=== PATIENT | female | born 1965 | race Caucasian/White ===

== ENCOUNTER 2017-01-03 21:07 | Emergency (ER) | payer OTHER ==
[2017-01-03 21:14] VITALS: BP 128/80; PULSE 119; TEMP 98.6; BMI 28.1
[2017-01-03] MEDS ORDERED: guaiFENesin/D-METHORPHAN HB 10 ML UNIT-DOSE CUPS PO ONE ×2 (21:40→22:39)
[2017-01-03] MEDS ORDERED: ALBUTEROL SO4 2.5/IPRATROPIUM 0.5 INH SOL 3 ML VIAL.NEB. NEB ONE ×2 (21:41)
[2017-01-03] MEDS ORDERED: guaiFENesin/D-METHORPHAN HB 10 ML UNIT-DOSE CUPS ONE ×2 (21:41→22:48)
[2017-01-03] MEDS ORDERED: predniSONE 20 MG TABLET (UD) ONE (21:41)
[2017-01-03] MEDS ORDERED: LIDOCAINE VISCOUS 2% ORAL/TOP 20 ML UNIT-DOSE CUP MM ONE (21:41)
[2017-01-03] MEDS ORDERED: predniSONE 20 MG TABLET (UD) PO ONE (21:43)
--- NOTE | 2017-01-03 21:50 | PDOC ---
History of Present Illness - General History Source: Patient Exam Limitations: No Limitations - History of Present Illness Initial Comments: 01/03/17 22:05 The patient is a 51 year old female with past medical history of asthma who presents to the ED with complaints of asthma exacerbation for one week. The patient states that she initially had a cold in which she saw her PCP for and was treated with metamucil. Her cold symptoms have subsided but her asthma still persists. She complains of cough and shortness of breath when she talks. The patient reports taking two nebulizer treatments today which did not help. She denies any fever, chills, nausea, vomiting, diarrhea, chest pain, or urinary symptoms. <JoanneeddiYadira - Last Filed: 01/03/17 22:05> - General History Source: Patient <Jose ManuelAlvin Enrique - Last Filed: 01/04/17 00:23> - General Chief Complaint: Respiratory Stated Complaint: ASTHMA ATTACK Past History <JoanneeddiYadira - Last Filed: 01/03/17 22:05> - Past Medical History Asthma: Yes - Surgical History GI Surgery: Yes (prolapsed bladder) - Psycho/Social/Smoking Cessation Hx Suicidal Ideation: No Smoking History: Never smoked <BirminghamAlvin Enrique - Last Filed: 01/04/17 00:23> - Past Medical History Allergies/Adverse Reactions: Allergies Allergy/AdvReac Type Severity Reaction Status Date / Time No Known Allergies Allergy Verified 01/03/17 21:14 Home Medications: Ambulatory Orders Albuterol Sulfate Inhaler - [Ventolin HFA Inhaler -] 2 inh PO Q4H #1 inh Benzonatate [Tessalon Pearls -] 100 mg PO TID #21 capsule 01/03/17 Guaifenesin Dm [Robitussin Dm] 10 ml PO Q4H #1 bottle 01/03/17 Prednisone [Deltasone -] 60 mg PO DAILY #4 tablet 01/03/17 Review of Systems - Review of Systems Able to Perform ROS?: Yes Comments:: 01/03/17 22:05 GENERAL/CONSTITUTIONAL: No fever or chills. No weakness. HEAD, EYES, EARS, NOSE AND THROAT: No change in vision. No ear pain or discharge. No sore throat. CARDIOVASCULAR: No chest pain. RESPIRATORY: Present: cough, shortness of breath No wheezing, or hemoptysis. GASTROINTESTINAL: No nausea, vomiting, diarrhea or constipation. GENITOURINARY: No dysuria, frequency, or change in urination. MUSCULOSKELETAL: No joint or muscle swelling or pain. No neck or back pain. SKIN: No rash NEUROLOGIC: No headache, vertigo, loss of consciousness, or change in strength/ sensation. ENDOCRINE: No increased thirst. No abnormal weight change. HEMATOLOGIC/LYMPHATIC: No anemia, easy bleeding, or history of blood clots. ALLERGIC/IMMUNOLOGIC: No hives or skin allergy. All Other Systems: Reviewed and Negative <Yadira Ruano - Last Filed: 01/03/17 22:05> *Physical Exam - Vital Signs Last Vital Signs Temp Pulse Resp BP Pulse Ox 98.6 F 119 H 20 128/80 98 01/03/17 21:11 01/03/17 21:11 01/03/17 21:11 01/03/17 21:11 01/03/17 21:25 - Physical Exam Comments: 01/03/17 22:06 GENERAL: Awake, alert, and fully oriented, in no acute distress HEAD: No signs of trauma EYES: PERRLA, EOMI, sclera anicteric, conjunctiva clear ENT: Auricles normal inspection, hearing grossly normal, nares patent, oropharynx clear without exudates. Moist mucosa NECK: Normal ROM, supple, no lymphadenopathy, JVD, or masses LUNGS: Mild prolonged expiratory wheeze. Dry cough appreciated. Breath sounds equal, clear to auscultation bilaterally. No crackles HEART: Mildly tachycardic, normal S1 and S2, no murmurs, rubs or gallops ABDOMEN: Soft, nontender, normoactive bowel sounds. No guarding, no rebound. No masses EXTREMITIES: Normal range of motion, no edema. No clubbing or cyanosis. No cords , erythema, or tenderness NEUROLOGICAL: Cranial nerves II through XII grossly intact. Normal speech, normal gait SKIN: Warm, Dry, normal turgor, no rashes or lesions noted. <Yadira Ruano - Last Filed: 01/03/17 22:05> - Vital Signs Last Vital Signs Temp Pulse Resp BP Pulse Ox 98.6 F 119 H 20 128/80 98 01/03/17 21:11 01/03/17 21:11 01/03/17 21:11 01/03/17 21:11 01/03/17 21:25 <Alvin Richard - Last Filed: 01/04/17 00:23> ED Treatment Course - LABORATORY CBC & Chemistry Diagram: 01/03/17 21:38 01/03/17 21:38 - ADDITIONAL ORDERS Additional order review: Laboratory Results 01/03/17 21:38 Urine Color Straw Urine Appearance Clear Urine pH 5.0 Ur Specific [place] 1.013 Urine Protein Negative Urine Glucose (UA) Negative Urine Ketones Negative Urine Blood 2+ H Urine Nitrite Negative Urine Bilirubin Negative Urine Urobilinogen Negative Ur Leukocyte Esterase Negative Urine RBC 1 Urine WBC 1 Ur Epithelial Cells Rare Urine Mucus Rare 01/03/17 21:38 RBC 4.27 MCV 84.0 MCHC 33.6 RDW 13.6 MPV 7.7 Neutrophils % 47.5 Lymphocytes % 40.0 Monocytes % 10.1 Eosinophils % 1.9 Basophils % 0.5 - Medications Given in the ED: ED Medications Discontinued Medications Generic Name Dose Route Start Last Admin Trade Name Juiceq PRN Reason Stop Dose Admin Albuterol/Ipratropium 1 amp 01/03/17 21:41 01/03/17 21:48 Duoneb - NEB 01/03/17 21:42 1 amp ONCE ONE Administration Guaifenesin 10 ml 01/03/17 21:40 01/03/17 21:48 Robitussin Dm - PO 01/03/17 21:41 10 ml ONCE ONE Administration Lidocaine HCl 10 ml 01/03/17 21:41 01/03/17 21:48 Xylocaine 2% Viscous Oral - MM 01/03/17 21:42 10 ml ONCE ONE Administration Prednisone 60 mg 01/03/17 21:43 01/03/17 21:48 Deltasone - PO 01/03/17 21:44 60 mg ONCE ONE Administration <Yadira Ruano - Last Filed: 01/03/17 22:05> - LABORATORY CBC & Chemistry Diagram: 01/03/17 21:38 01/03/17 21:38 <Alvin Richard - Last Filed: 01/04/17 00:23> Medical Decision Making - Medical Decision Making 01/03/17 23:42 This is a 51yo F with cough variant asthma exacerbation, and no objective findings, particularly a negative CXR. She has no leukocytosis and no fever; she looks well only with cough paroxysms. She is doing better with the nebulized albuterol, ipratropirum and lidocaine. She is given tessalon pearles , robitussin DM and prednisone, albuterol MDI. She is encouraged to follow up with the PMD within the next 48 hours and if there is any change otherwise in symptoms, to return immediately to the ED. 01/04/17 00:22 Pt is feeling much improved. She is discharged with the above plan. <Alvin Richard - Last Filed: 01/04/17 00:23> *DC/Admit/Observation/Transfer - Attestations Scribe Attestion: 01/03/17 22:08 Documentation prepared by Yadira Ruano, acting as medical clerical assistant for Alvin Richard MD. <Yadira Ruano - Last Filed: 01/03/17 22:05> - Discharge Dispostion Admit: No Decision to Admit order Date/Time: 01/03/17 23:39 - Attestations Physician Attestion: 01/04/17 00:22 I, Dr. Alvin Richard MD, attest that this document has been prepared under my direction and personally reviewed by me in its entirety. I further attest, that it accurately reflects all work, treatment, procedures and medical decision -making performed by me. <Alvin Richard - Last Filed: 01/04/17 00:23> Diagnosis at time of Disposition: Cough variant asthma, Chest tightness - Discharge Dispostion Disposition: HOME Condition at time of disposition: Good - Prescriptions Prescriptions: Prednisone [Deltasone -] 60 mg PO DAILY #4 tablet Guaifenesin Dm [Robitussin Dm] 10 ml PO Q4H #1 bottle Benzonatate [Tessalon Pearls -] 100 mg PO TID #21 capsule Albuterol Sulfate Inhaler - [Ventolin HFA Inhaler -] 2 inh PO Q4H #1 inh - Patient Instructions Additional Instructions: Please follow up with your PMD within the next 48 hours and if there is any change otherwise in your symptoms, please return immediately to the ED. At this time, your symptoms are likely related to viral issue and antibiotics are unlikely to be helpful.
[2017-01-03 21:53] LABS: URINE APPEARANCE CLEAR; URINE BILIRUBIN NEGATIVE (NEGATIVE); URINE COLOR STRAW; URINE GLUCOSE (UA) NEGATIVE (NEGATIVE); URINE KETONE NEGATIVE (NEGATIVE); URINE LEUK ESTERASE NEGATIVE (NEGATIVE); URINE NITRITE NEGATIVE (NEGATIVE); URINE PROTEIN NEGATIVE (NEGATIVE); URINE UROBILINOGEN NEGATIVE E.U./dl (0.2-1.0)
[2017-01-03 21:54] LABS: BASOPHIL 0.5 % (0-2.0); EOSINOPHIL 1.9 % (0-4.5); MCH 28.2 pg (25.7-33.7); MCHC 33.6 g/dl (32.0-36.0); MEAN PLT VOLUME 7.7 fl (7.5-11.1); NEUTROPHILS 47.5 % (42.8-82.8); PLATELET COUNT 224 K/MM3 (134-434); RDW 13.6 % (11.6-15.6); WHITE BLOOD COUNT 5.1 K/mm3 (4.0-10.0)
[2017-01-03] MEDS ORDERED: SODIUM CHLORIDE 1,000 ML IV ONE (21:54)
[2017-01-03 21:56] LABS: URINE BLOOD 2+ (NEGATIVE)
[2017-01-03 21:59] LABS: URINE MUCUS RARE; URINE RBC 1 /hpf (0-3); URINE WBC 1 /hpf (3-5)
[2017-01-03 22:04] LABS: INR 1.21 (0.82-1.09); PROTHROMBIN TIME (PATIENT) 13.4 SEC (9.98-11.88)
[2017-01-03 22:17] LABS: ALBUMIN 3.3 g/dl (3.4-5.0); BILIRUBIN,TOTAL 0.3 mg/dL (0.2-1.0); CALCIUM 7.8 mg/dL (8.5-10.1); MAGNESIUM 2.1 mg/dL (1.8-2.4); PHOSPHOROUS 2.2 mg/dL (2.5-4.9); TOT PROT 7.1 g/dl (6.4-8.2)
[2017-01-03] MEDS ORDERED: ONDANSETRON *ODT* 4 MG TABLET SL ONE (22:40)
[2017-01-03] MEDS ORDERED: ONDANSETRON *ODT* 4 MG TABLET ONE (22:48)
[2017-01-03] MEDS ORDERED: LIDOCAINE HCL 2% (20ML MULTI-DOSE VIAL) NR ONE (22:54)
[2017-01-03] MEDS ORDERED: POTASSIUM CHLORIDE TABS 20 MEQ TABLET.ER (FP) PO ONE ×2 (23:06→23:07)
[2017-01-03] MEDS ORDERED: LIDOCAINE HCL 2% (50ML VIAL) INF ONE (23:37)
[2017-01-03] MEDS ORDERED: guaiFENesin/CODEINE 10 ML UNIT-DOSE CUPS PO ONE (23:37)
[2017-01-04] MEDS ORDERED: LIDOCAINE HCL 2% (20ML MULTI-DOSE VIAL) NR ONE (00:50)
[2017-01-04] MEDS ORDERED: guaiFENesin/CODEINE 5 ML UNIT-DOSE CUPS PO ONE (00:50)
== END 2017-01-04 01:05 | disposition home or self-care (01) ==
LOC: JER 21:07
PROC: 3E0F7GC Introduction of Other Therapeutic Substance into Respiratory Tract, Via Natural or Artificial Opening (ICD-10-PCS; principal; 2017-01-03)
PROC: 3E0337Z Introduction of Electrolytic and Water Balance Substance into Peripheral Vein, Percutaneous Approach (ICD-10-PCS; 2017-01-03)
DX: J45.991 Cough variant asthma (principal)
CPT/HCPCS: 36415; 71020-TC; 80053; 81003; 81015; 83605; 83735; 83880; 84100; 85025; 85610; 86850; 86900; 86901; 99284-25

== ENCOUNTER 2019-07-11 04:52 | Inpatient (IN) | payer OTHER ==
--- NOTE | 2019-07-11 05:04 | PDOC ---
Attending Attestation - Resident Resident Name: Charlie Lima - ED Attending Attestation I have performed the following: I have examined & evaluated the patient, The case was reviewed & discussed with the resident, I agree w/resident's findings & plan - HPI HPI: 07/11/19 05:20 Pt comes with fever and chills and hypotension and dehydration and weakness and body aches all over. She has been unable to eat x 2 days. Feeling unwell. - Physicial Exam PE: 07/11/19 05:20 Febrile, tachy, dehydrated, hypotensive. HEENT normal Lungs clear, heart tachy Abd soft NT ND No flank pain ni sprapubic pain. No swelling or edema of legs or arms. - Medical Decision Making 07/11/19 05:43 CXR normal; EKG NSR; exam normal, except for fever and tahcycardia and diffuse body aches 07/11/19 06:57 Pt will be admitted for fever, aches, inability to eat and drink and weakness. Signed out to the day team; will be admitted to hospitalist. Heart Score/ECG Review - ECG Intrepretation Rhythm: Regular Rhythm - [place]: Normal - P and OR Prominent R with upright T in V1 (true posterior CT): No Delta Wave(s) Present: No WPW: No - QRS Poor R Wave Progression: No Q Wave Present: No - ST and T Early Repolarization: No Non Specific ST-T Wave changes: No Flattened T Waves: No Prolonged Q-T Interval: No - ECG Impressions Normal ECG: Yes Non-specific ST Elevation: No Ischemic Changes: No Bradycardia: No Torsades janessa Pointes: No WPW: No
[2019-07-11] MEDS ORDERED: LACTATED RINGERS SOLUTION 1000 ML INFUS.BAG IV ONE ×2 (05:12→07:16)
[2019-07-11] MEDS ORDERED: ONDANSETRON 4 MG/2 ML VIAL IVPB ONE (05:13)
[2019-07-11] MEDS ORDERED: IBUPROFEN 800 MG/8 ML IJ IVPB ONE ×3 (05:13→07:48)
[2019-07-11] MEDS ORDERED: ACETAMINOPHEN INJECTION 100 ML IVPB ONE (05:16)
[2019-07-11] MEDS ORDERED: ACETAMINOPHEN 1000 MG/100 ML VIAL (NON FORMULARY) IVPB ONE (05:18)
[2019-07-11 05:30] LABS: VENOUS PC02 42.1 mmHg (38-52); VENOUS PH 7.41 (7.31-7.41)
[2019-07-11 05:32] LABS: BASO % 0.8 % (0-2.0); EOS % 0.2 % (0-4.5); HEMATOCRIT 37.8 % (32.4-45.2); HEMOGLOBIN 12.9 GM/dL (10.7-15.3); LYMPH % 23.9 % (8-40); MCH 29.1 pg (25.7-33.7); MCHC 34.2 g/dl (32.0-36.0); MEAN CELL VOLUME 85.1 fl (80-96); MEAN PLT VOLUME 7.4 fl (7.5-11.1); NEUT % 63.1 % (42.8-82.8); PLATELET COUNT 206 K/MM3 (134-434); RBC 4.44 M/mm3 (3.60-5.2); RDW 13.5 % (11.6-15.6); VENOUS PO2 < 49 mmHg (28-48); WHITE BLOOD COUNT 4.8 K/mm3 (4.0-10.0)
--- NOTE | 2019-07-11 05:39 | PDOC ---
History of Present Illness - General Chief Complaint: SIRS, Suspected/Possible Stated Complaint: DEHYDRATED/PAIN Time Seen by Provider: 07/11/19 05:01 History Source: Patient Exam Limitations: No Limitations - History of Present Illness Initial Comments: HPI: 53 y/o female presenting to [facility] ER complaining of persistent vomiting with fevers and chills since Thursday. Unable to tolerate PO. Emesis described as yellow without blood or bile. Denies associated abdominal pain, diarrhea, or urinary symptoms. Endorses diffuse body aches and "mild" constipation. Attempted relief with PO Tylenol without success. No known sick contacts. Medical Hx: - Asthma, managed with PRN albuterol Surgical Hx: - Uterine lift - Review of Systems: In addition to that documented in the HPI above, the additional ROS was obtained : Constitutional- Endorses fevers and chills Head- Denies vision changes ENMT- Denies sore throat CV- Denies chest pain Resp- Denies SOB, cough, or sneeze GI- Per HPI - Denies painful urination, hematuria, or increased urinary frequency MSK- Denies recent trauma Skin- Denies new rashes Neuro- Denies new numbness or tingling or weakness Endocrine- Denies polyuria Heme- Denies bleeding or bruising Physical Examination: Constitutional- Puny appearing adult female in no acute distress but obvious mild discomfort. Found semi-fowlers on hospital bed. Answered all questions appropriately and completely. Speech was non-labored, non-pressured. Head- Normocephalic. No obvious external signs of trauma. Eyes- Sclerae white. Ears- External auditory canals and tympanic membranes pearly holly. Hearing grossly intact. Nose- No nasal discharge. Throat- Oral cavity and pharynx normal. No inflammation, swelling, exudate, or lesions. Neck- Supple, trachea is midline. Cardiovascular / Chest- Tachycardic rate with regular rhythm. No murmur, rubs, clicks, or gallops. Peripheral pulses- radial pulses full. Respiratory- Breathing unlabored. Equal chest rise and fall. Clear to auscultation bilaterally. No stridor, no wheezing, no rhonchi. Gastrointestinal- abdomen is soft, non-tender, non-distended. No overlying skin lesions or obvious signs of trauma. Neuro- Alert and oriented x4. Moving all four extremities spontaneously. Skin- Feverish but dry. No bruising, rashes, or other lesions. - No R or L CVA tenderness. Psych- Affect- appropriate. Mood- normal. MDM: *Reviewed vital signs, nursing notes, and prior visit documentation (if available). 53 y/o female presenting with vomiting, fever, and diffuse body aches for three days. Febrile at triage; given acetaminophen. Vitals remarkable for tachycardia without hypotension. Physical exam as described above. Suspect likely acute viral syndrome with dehydration. Initial UA grossly contaminated. Repeat UA obtained after clean catch coaching remarkable for trace leukocyte esterase and pyuria. Low suspicion for UTI as pt denies urinary complaints, however will treat pt with Ceftriaxone. Urine culture pending. Given 2L LR IVFB and Zofran. Pt reassessed. Remains febrile to the touch. Will admit to hospital for further rehydration as pt remains unable to tolerate PO. Lives alone. Ordered third LR IVFB and Motrin. 11 Jul 2019 05:50 [facility]. Awaiting call back. 11 Jul 2019 06:20 In person discussion with resident Dr. Wilde. Verbally appraised of the pts HPI, ED course, and current plan of management. Will admit pt to med/surg for attending Dr. Gallardo. Charlie Lima M.D., PGY2 Emergency Medicine Resident Past History - Past Medical History Allergies/Adverse Reactions: Allergies Allergy/AdvReac Type Severity Reaction Status Date / Time No Known Allergies Allergy Verified 07/11/19 05:03 Home Medications: Ambulatory Orders Albuterol Sulfate Inhaler - [Ventolin HFA Inhaler -] 2 inh PO Q4H #1 inh Benzonatate [Tessalon Pearls -] 100 mg PO TID #21 capsule 01/03/17 Guaifenesin Dm [Robitussin Dm] 10 ml PO Q4H #1 bottle 01/03/17 predniSONE [Deltasone -] 60 mg PO DAILY #4 tablet 01/03/17 Asthma: Yes COPD: No - Surgical History GI Surgery: Yes (prolapsed bladder) - Psycho Social/Smoking Cessation Hx Smoking History: Never smoked *Physical Exam - Vital Signs Last Vital Signs Temp Pulse Resp BP Pulse Ox 101.8 F H 126 H 20 109/75 97 07/11/19 05:02 07/11/19 05:02 07/11/19 05:02 07/11/19 05:15 07/11/19 05:02 ED Treatment Course - LABORATORY CBC & Chemistry Diagram: 07/11/19 05:17 07/11/19 05:12 - ADDITIONAL ORDERS Additional order review: Laboratory Results 07/11/19 05:17 VBG pH 7.41 POC VBG pCO2 42.1 POC VBG pO2 < 49 H VBG HCO3 26.0 VBG O2 Sat (Juliane) 63.1 L VBG Base Excess 1.6 - RADIOLOGY Radiology Studies Ordered: Category Date Time Status CHEST X-RAY PORTABLE* [RAD] Stat Radiology 07/11/19 05:12 Ordered - Medications Given in the ED: ED Medications Discontinued Medications Generic Name Dose Route Start Last Admin Trade Name Christin PRN Reason Stop Dose Admin Acetaminophen 1,000 mg 07/11/19 05:18 07/11/19 05:19 Ofirmev Injection - IVPB 07/11/19 05:19 1,000 mg ONCE ONE Administration Ibuprofen 800 mg 07/11/19 05:13 07/11/19 05:23 Caldolor Injection - IVPB 07/11/19 05:14 Not Given ONCE ONE Lactated Ringer's 2,000 ml 07/11/19 05:12 07/11/19 05:22 Lactated Ringers Solution IV 07/11/19 05:13 2,000 ml ONCE ONE Administration Discharge - Discharge Information Problems reviewed: Yes Clinical Impression/Diagnosis: Tachycardia, Generalized body aches, Vomiting alone Fever Qualifiers: Fever type: unspecified Qualified Code(s): R50.9 - Fever, unspecified Condition: Stable - Admission Yes - Follow up/Referral - Patient Discharge Instructions - Post Discharge Activity
[2019-07-11 05:49] LABS: EPI CELLS >36 /HPF (0-5/HPF); HYALINE CASTS 26 /lpf (0-8); URINE APPEARANCE TURBID; URINE BACTERIA 1236.7 /hpf (NEGATIVE); URINE BILIRUBIN NEGATIVE (NEGATIVE); URINE COLOR YELLOW; URINE GLUCOSE (UA) NEGATIVE (NEGATIVE); URINE KETONE TRACE (NEGATIVE); URINE LEUK ESTERASE 2+ (NEGATIVE); URINE NITRITE NEGATIVE (NEGATIVE); URINE PROTEIN 1+ (NEGATIVE); URINE UROBILINOGEN 0.2 mg/dL (0.2-1.0); URINE WBC 199 /hpf (0-5)
[2019-07-11] MEDS ORDERED: ONDANSETRON 4 MG/2 ML VIAL ONE (05:49)
[2019-07-11 05:51] LABS: URINE RBC 23 /hpf (0-4)
[2019-07-11 05:53] LABS: INR 1.27 (0.83-1.09)
[2019-07-11 05:57] LABS: ALBUMIN 3.7 g/dl (3.4-5.0); ALK PHOS 93 U/L (45-117); ANION GAP 7 MMOL/L (8-16); BILIRUBIN,TOTAL 0.5 mg/dL (0.2-1); CALCIUM 8.3 mg/dL (8.5-10.1); CHLORIDE 107 mmol/L (98-107); CO2 25 mmol/L (21-32); CREATININE 0.9 mg/dL (0.55-1.3); GLUCOSE,RANDOM 116 mg/dL (74-106); POTASSIUM 4.2 mmol/L (3.5-5.1); SGOT/AST 27 U/L (15-37); SGPT/ALT 28 U/L (13-61); SODIUM 139 mmol/L (136-145); TOT PROT 7.5 g/dl (6.4-8.2)
[2019-07-11] MEDS ORDERED: CEFTRIAXONE 1 GM in DEXTROSE 5%-WATER - 50 ML IVPB ONE (06:12)
[2019-07-11] MEDS ORDERED: CEFTRIAXONE 1 GM/50 ML BAG ONE (06:18)
[2019-07-11 06:37] LABS: EPI CELLS 4.7 /HPF (0-5/HPF); HYALINE CASTS 4 /lpf (0-8); PH,URINE 5.5 (5.0-8.0); URINE APPEARANCE CLEAR; URINE BACTERIA 76.7 /hpf (NEGATIVE); URINE BILIRUBIN NEGATIVE (NEGATIVE); URINE COLOR YELLOW; URINE GLUCOSE (UA) NEGATIVE (NEGATIVE); URINE KETONE NEGATIVE (NEGATIVE); URINE LEUK ESTERASE TRACE (NEGATIVE); URINE NITRITE NEGATIVE (NEGATIVE); URINE PROTEIN NEGATIVE (NEGATIVE); URINE RBC 3 /hpf (0-4); URINE UROBILINOGEN 0.2 mg/dL (0.2-1.0); URINE WBC 12 /hpf (0-5)
[2019-07-11] MEDS ORDERED: ALBUTEROL SO4 0.083% IH SOL 2.5 MG/3 ML VIAL.NEB. NEB PRN (07:42)
--- NOTE | 2019-07-11 07:42 | HP ---
CHIEF COMPLAINT: fever, chills, nausea,vomiting PCP: none HISTORY OF PRESENT ILLNESS: Patient is a 53 y/o female with a history of asthma who presents with fever, nausea, vomiting, and body aches. Patient reports her symptoms started 3 days ago. The last time she ate was three days ago for lung. Yesterday she vomited two times yellow bile. She denies any sick contacts. She has been feeling hot but has not taken her temperature. Patient is a gas station cashier. Also complains of headache. Denies chest pain, shortness of breath, muscle cramping, dysuria, hematuria, or abdominal pain. ER course was notable for: (1) Zofran (2) (3) Recent Travel: returned from [place] 3 weeks ago PAST MEDICAL HISTORY: asthma PAST SURGICAL HISTORY: 3 bladder lifts and a C section Social History: Smoking: denies Alcohol: denies Drugs: denies Allergies No Known Allergies Allergy (Verified 07/11/19 05:03) HOME MEDICATIONS: Home Medications Medication Instructions Recorded Albuterol Sulfate Inhaler - 2 inh PO Q4H #1 inh 01/03/17 [Ventolin HFA Inhaler -] Benzonatate [Tessalon Pearls -] 100 mg PO TID #21 capsule 01/03/17 Guaifenesin Dm [Robitussin Dm] 10 ml PO Q4H #1 bottle 01/03/17 predniSONE [Deltasone -] 60 mg PO DAILY #4 tablet 01/03/17 REVIEW OF SYSTEMS CONSTITUTIONAL: fever, chills, loss of appetite, Absent: diaphoresis, generalized weakness, malaise, weight change HEENT: Absent: rhinorrhea, nasal congestion, throat pain, throat swelling, difficulty swallowing, mouth swelling, ear pain, eye pain, visual changes CARDIOVASCULAR: Absent: chest pain, syncope, palpitations, irregular heart rate, lightheadedness , peripheral edema RESPIRATORY: Absent: cough, shortness of breath, dyspnea with exertion, orthopnea, wheezing, stridor, hemoptysis GASTROINTESTINAL: Absent: abdominal pain, abdominal distension, nausea, vomiting, diarrhea, constipation, melena, hematochezia GENITOURINARY: Absent: dysuria, frequency, urgency, hesitancy, hematuria, flank pain, genital pain MUSCULOSKELETAL: Absent: myalgia, arthralgia, joint swelling, back pain, neck pain SKIN: Absent: rash, itching, pallor HEMATOLOGIC/IMMUNOLOGIC: Absent: easy bleeding, easy bruising, lymphadenopathy, frequent infections ENDOCRINE: Absent: unexplained weight gain, unexplained weight loss, heat intolerance, cold intolerance NEUROLOGIC: headache, Absent: focal weakness or paresthesias, dizziness, unsteady gait, seizure, mental status changes, bladder or bowel incontinence PSYCHIATRIC: Absent: anxiety, depression, suicidal or homicidal ideation, hallucinations. PHYSICAL EXAMINATION Vital Signs - 24 hr 07/11/19 07/11/19 05:02 05:15 Temperature 101.8 F H Pulse Rate 126 H Respiratory 20 Rate Blood Pressure 94/74 Blood Pressure 109/75 [Left Arm] O2 Sat by Pulse 97 Oximetry (%) GENERAL: Awake, alert, and fully oriented, in no acute distress. HEAD: Normal with no signs of trauma. EYES: Pupils equal, round and reactive to light, extraocular movements intact, EARS, NOSE, THROAT: Moist mucous membranes. No erythema of pharynx LUNGS: Breath sounds equal, clear to auscultation bilaterally. No wheezes, and no crackles. No accessory muscle use. HEART: Regular rate and rhythm, normal S1 and S2 without murmur, rub or gallop. ABDOMEN: Soft, nontender, not distended, normoactive bowel sounds, no guarding, no rebound, no masses. MUSCULOSKELETAL: Normal range of motion at all joints. No bony deformities or tenderness. LOWER EXTREMITIES: 2+ pulses, warm, well-perfused. No calf tenderness. No peripheral edema. SKIN: Warm, dry, normal turgor, no rashes or lesions noted, normal capillary refill. CBC, BMP 07/11/19 05:17 07/11/19 05:12 ASSESSMENT/PLAN: Patient is a 53 y/o female with a history of asthma who presents with fever, nausea, vomiting, and body aches. #fever, chills, nausea, vomiting - likely 2/2 to viral syndrome, sepsis - influenza swab negative -presented febrile and tachycardic - received 3 L LR in ED - continue LR @ 100 - tylenol prn for fever - zofran prn for nausea, QTC 437 #asthma - albuterol prn for SOB #DVT ppx - Lovenox 40 sq daily #FEN - regular diet Dispo: monitor on med-surg Visit type - Emergency Visit Emergency Visit: Yes ED Registration Date: 07/11/19 Care time: The patient presented to the Emergency Department on the above date and was hospitalized for further evaluation of their emergent condition. - New Patient This patient is new to me today: Yes Date on this admission: 07/11/19 - Critical Care Critical Care patient: No ATTENDING PHYSICIAN STATEMENT I saw and evaluated the patient. I reviewed the resident's note and discussed the case with the resident. I agree with the resident's findings and plan as documented. SUBJECTIVE: OBJECTIVE: ASSESSMENT AND PLAN:
--- NOTE | 2019-07-11 07:52 | PN ---
Teaching Attending Note Name of Resident: Jenn Wilde ATTENDING PHYSICIAN STATEMENT I saw and evaluated the patient. I reviewed the resident's note and discussed the case with the resident. I agree with the resident's findings and plan as documented. SUBJECTIVE: This is a 53 year old woman with a history of asthma who comes to the ED complaining of fever, nausea, vomiting, and body aches for the last 3 days. She says she has been unable to eat or drink during this time. She has vomited yellow fluid. She thinks she has been having fevers but has not checked her temperature. She has not been around anyone who has been sick. She has not eaten anything or anyplace unusual. She denies abdominal pain, dysuria, hematuria, urinary frequency, flank pain. OBJECTIVE: Vital Signs Period Temp Pulse Resp BP Sys/Vargas Pulse Ox Last 24 Hr 101.8 F 126 20 94-109/74-75 97 HEART: S1S2, tachycardic LUNGS: Clear ABDOMEN: Soft, non-tender, non-distended, normal BS EXTREMITIES: No edema Laboratory Tests 07/11/19 07/11/19 07/11/19 05:12 05:12 05:17 WBC 4.8 RBC 4.44 Hgb 12.9 Hct 37.8 MCV 85.1 MCH 29.1 MCHC 34.2 RDW 13.5 Plt Count 206 MPV 7.4 L Absolute Neuts (auto) 3.0 Neutrophils % 63.1 D Lymphocytes % 23.9 D Monocytes % 12.0 H Eosinophils % 0.2 D Basophils % 0.8 Nucleated RBC % 0 PT with INR INR PTT (Actin FS) VBG pH POC VBG pCO2 POC VBG pO2 VBG HCO3 VBG O2 Sat (Juliane) VBG Base Excess Sodium 139 Potassium 4.2 Chloride 107 Carbon Dioxide 25 Anion Gap 7 L BUN 16.0 Creatinine 0.9 Est GFR (CKD-EPI)AfAm 85.20 Est GFR (CKD-EPI)NonAf 73.51 Random Glucose 116 H Lactic Acid 0.7 Calcium 8.3 L Total Bilirubin 0.5 AST 27 ALT 28 Alkaline Phosphatase 93 Troponin I < 0.02 Total Protein 7.5 Albumin 3.7 Urine Color Urine Appearance Urine pH Ur Specific [place] Urine Protein Urine Glucose (UA) Urine Ketones Urine Blood Urine Nitrite Urine Bilirubin Urine Urobilinogen Ur Leukocyte Esterase Urine WBC (Auto) Urine RBC (Auto) Urine Casts (Auto) U Pathogenic Cast Auto U Epithel Cells (Auto) Urine Bacteria (Auto) Influenza A (Rapid) Influenza B (Rapid) 07/11/19 07/11/19 07/11/19 05:17 05:17 05:17 WBC RBC Hgb Hct MCV MCH MCHC RDW Plt Count MPV Absolute Neuts (auto) Neutrophils % Lymphocytes % Monocytes % Eosinophils % Basophils % Nucleated RBC % PT with INR 15.00 H INR 1.27 H PTT (Actin FS) 34.9 VBG pH 7.41 POC VBG pCO2 42.1 POC VBG pO2 < 49 H VBG HCO3 26.0 VBG O2 Sat (Juliane) 63.1 L VBG Base Excess 1.6 Sodium Potassium Chloride Carbon Dioxide Anion Gap BUN Creatinine Est GFR (CKD-EPI)AfAm Est GFR (CKD-EPI)NonAf Random Glucose Lactic Acid Calcium Total Bilirubin AST ALT Alkaline Phosphatase Troponin I Total Protein Albumin Urine Color Urine Appearance Urine pH Ur Specific [place] Urine Protein Urine Glucose (UA) Urine Ketones Urine Blood Urine Nitrite Urine Bilirubin Urine Urobilinogen Ur Leukocyte Esterase Urine WBC (Auto) Urine RBC (Auto) Urine Casts (Auto) U Pathogenic Cast Auto U Epithel Cells (Auto) Urine Bacteria (Auto) Influenza A (Rapid) Influenza B (Rapid) 07/11/19 07/11/19 07/11/19 05:30 05:30 06:10 WBC RBC Hgb Hct MCV MCH MCHC RDW Plt Count MPV Absolute Neuts (auto) Neutrophils % Lymphocytes % Monocytes % Eosinophils % Basophils % Nucleated RBC % PT with INR INR PTT (Actin FS) VBG pH POC VBG pCO2 POC VBG pO2 VBG HCO3 VBG O2 Sat (Juliane) VBG Base Excess Sodium Potassium Chloride Carbon Dioxide Anion Gap BUN Creatinine Est GFR (CKD-EPI)AfAm Est GFR (CKD-EPI)NonAf Random Glucose Lactic Acid Calcium Total Bilirubin AST ALT Alkaline Phosphatase Troponin I Total Protein Albumin Urine Color Yellow Yellow Urine Appearance Turbid Clear Urine pH 5.0 5.5 Ur Specific [place] 1.033 1.028 Urine Protein 1+ H Negative Urine Glucose (UA) Negative Negative Urine Ketones Trace H Negative Urine Blood 1+ H 1+ H Urine Nitrite Negative Negative Urine Bilirubin Negative Negative Urine Urobilinogen 0.2 0.2 Ur Leukocyte Esterase 2+ H Trace Urine WBC (Auto) 199 12 Urine RBC (Auto) 23 3 Urine Casts (Auto) 26 4 U Pathogenic Cast Auto None U Epithel Cells (Auto) >36 4.7 Urine Bacteria (Auto) 1236.7 76.7 Influenza A (Rapid) Negative Influenza B (Rapid) Negative Home Medications Medication Instructions Recorded Albuterol Sulfate Inhaler - 2 inh PO Q4H #1 inh 01/03/17 [Ventolin HFA Inhaler -] Benzonatate [Tessalon Pearls -] 100 mg PO TID #21 capsule 01/03/17 Guaifenesin Dm [Robitussin Dm] 10 ml PO Q4H #1 bottle 01/03/17 predniSONE [Deltasone -] 60 mg PO DAILY #4 tablet 01/03/17 ASSESSMENT AND PLAN: This is a 53 year old woman with a history of asthma who presented to the ED with fever, nausea, vomiting, and body aches x 3 days 1. Sepsis (tachycardia, fever) secondary to viral syndrome - IV fluid - Zofran as needed for nausea - Clear liquid diet and advance as tolerated - Ceftriaxone given in ED - No indication for antibiotics at this time - Follow up blood, urine cultures 2. Asthma - Stable - Albuterol as needed
[2019-07-11] MEDS: ENOXAPARIN NA (PORCINE) 40 MG/0.4 ML DISP.SYRIN SQ SCH (10:20)
[2019-07-11] MEDS: LACTATED RINGERS SOLUTION 1,000 ML IV SCH ×2 (10:29→14:13)
[2019-07-11 11:04] VITALS: BMI 28.2
[2019-07-11] MEDS ORDERED: FLU VACCINE QUAD 60 MCG/0.5 ML (MDV 19-20) IM ONE (11:04)
[2019-07-11] MEDS ORDERED: PNEUMOC 13-VAL CONJ-DIP CRM/PF 0.5 ML DISP.SYRIN IM ONE ×2 (11:04→13:30)
[2019-07-11] MEDS ORDERED: PNEUMOCOCCAL 23 VACCINE 0.5 ML VIAL IM ONE ×2 (11:15→14:00)
--- NOTE | 2019-07-11 13:13 | EKG ---
Test Reason : Blood Pressure : / mmHG Vent. Rate : 096 BPM Atrial Rate : 096 BPM P-R Int : 122 ms QRS Dur : 072 ms QT Int : 346 ms P-R-T Axes : 043 -24 029 degrees QTc Int : 437 ms NORMAL SINUS RHYTHM CANNOT RULE OUT ANTERIOR INFARCT , AGE UNDETERMINED ABNORMAL ECG NO PREVIOUS ECGS AVAILABLE Confirmed by VANE LLAMAS MD ([id number]) on 07/11/2019 1:12:56 PM Referred By: Confirmed By:VANE LLAMAS MD
[2019-07-11] MEDS: ONDANSETRON 4 MG/2 ML VIAL IVPUSH PRN (16:29)
[2019-07-11] MEDS: ACETAMINOPHEN 325 MG TABLET (FP) PO PRN ×2 (17:49→22:29)
[2019-07-12] MEDS: LACTATED RINGERS SOLUTION 1,000 ML IV SCH ×4 (02:42→18:00)
[2019-07-12] MEDS: ACETAMINOPHEN 325 MG TABLET (FP) PO PRN ×2 (03:18→15:26)
[2019-07-12] MEDS ORDERED: IBUPROFEN 400 MG TABLET (FP) PO ONE (05:48)
[2019-07-12] MEDS ORDERED: SODIUM CHLORIDE 1,000 ML IV STA (08:03)
[2019-07-12 08:36] LABS: BASO % 0.6 % (0-2.0); HEMATOCRIT 32.7 % (32.4-45.2); HEMOGLOBIN 11.1 GM/dL (10.7-15.3); LYMPH % 23.3 % (8-40); MCH 28.9 pg (25.7-33.7); MCHC 33.9 g/dl (32.0-36.0); MEAN CELL VOLUME 85.3 fl (80-96); MEAN PLT VOLUME 7.9 fl (7.5-11.1); MONO % 7.5 % (3.8-10.2); NEUT % 68.6 % (42.8-82.8); PLATELET COUNT 146 K/MM3 (134-434); RBC 3.84 M/mm3 (3.60-5.2); RDW 13.3 % (11.6-15.6); WHITE BLOOD COUNT 4.5 K/mm3 (4.0-10.0)
[2019-07-12 09:01] LABS: BILIRUBIN,TOTAL 0.4 mg/dL (0.2-1); BLOOD UREA NITROGEN 9.3 mg/dL (7-18); CALCIUM 7.7 mg/dL (8.5-10.1); CREATININE 0.9 mg/dL (0.55-1.3); POTASSIUM 3.7 mmol/L (3.5-5.1); TOT PROT 6.2 g/dl (6.4-8.2)
[2019-07-12] MEDS ORDERED: CEFTRIAXONE 2 GM in DEXTROSE 5%-WATER 100 ML IVPB SCH (10:00)
[2019-07-12] MEDS ORDERED: CEFTRIAXONE 1 GM in DEXTROSE 5%-WATER - 50 ML IVPB SCH (10:00)
[2019-07-12] MEDS ORDERED: DEXTROSE 5%-WATER 200 ML IVPB ONE (10:37)
[2019-07-12] MEDS: ONDANSETRON 4 MG/2 ML VIAL IVPUSH PRN (11:04)
[2019-07-12] MEDS: ENOXAPARIN NA (PORCINE) 40 MG/0.4 ML DISP.SYRIN SQ SCH (11:05)
[2019-07-12] MEDS ORDERED: PROCHLORPERAZINE INJECTION 10 MG/2 ML VIAL IVPB ONE (13:09)
--- NOTE | 2019-07-12 13:19 | PN ---
Teaching Attending Note Name of Resident: Ольга Garrido ATTENDING PHYSICIAN STATEMENT I saw and evaluated the patient. I reviewed the resident's note and discussed the case with the resident. I agree with the resident's findings and plan as documented. SUBJECTIVE:c/o TOBIAS and slightly nauseated but no more vomiting since arrival to the hospital. states her symptoms started 4 days ago with diffuse body aches and developed nausea and vomiting yesterday which prompted her to the ER. has had multiple episodes in the past causing hospitalization but all symptoms resolve on its own and no formal diagnosis has been made. denies being in heavily wooded areas or bug bites, rashes, sick contacts or recent abx use. no medications. recently moved here several weeks ago from [place]. denies Cp, SOB , hemoptysis, cough, photophobia OBJECTIVE: Last Vital Signs Temp Pulse Resp BP Pulse Ox 99.9 F H 85 20 95/62 96 07/12/19 11:58 07/12/19 10:20 07/12/19 10:20 07/12/19 10:20 07/11/19 21:00 General NAD CV S1 S2 RRR no murmur/rub/gallop Lungs CTA B/L no wheezing/rales/rhonchi Abdomen soft NT/ND no CVA tenderness Extremiteis no edema no calf swelling or tenderness skin no rashes or lesions ASSESSMENT AND PLAN: 3 year old woman with a history of asthma who presented to the ED with fever, nausea, vomiting, and body aches x 3 days 1. Sepsis (tachycardia, fever) secondary to viral syndrome- initial UA + but was dirty catch and on repeat is negative. was started on empiric Ceftriaxone which will d/c as Ucx is negative. will cont wtih IVF hydration. f/u Cx. seems more viral at this time. if fever persist will consider evaluating for PE or clot with patient recent history of travel however low suspicion given lack of leg swelling or cough. 2. Asthma- Stable. Albuterol as needed 3. DVT ppx- lovenox
--- NOTE | 2019-07-12 14:15 | PN ---
Physical Exam: SUBJECTIVE: Patient seen and examined. She reports nausea but no vomiting since last night. No hematemesis. She is also having a headache, chills, and sweating. She denies abdominal pain, chest pain, shortness of breath, rhinorrhea , and diarrhea. No recent travel other than moved from [place],no sick contacts , and no significant time outdoors in wooded areas. OBJECTIVE: Vital Signs Period Temp Pulse Resp BP Sys/Vargas Pulse Ox Last 24 Hr 99 F-102 F 82-107 18-20 90-119/49-72 96 GENERAL: The patient is awake, alert, and fully oriented, in no acute distress. HEAD: Normal with no signs of trauma. No nuchal rigidity. EYES: PERRL, extraocular movements intact, sclera anicteric, conjunctiva clear. No ptosis. ENT: Ears normal, nares patent, moist mucous membranes. NECK: Trachea midline, full range of motion, supple. LUNGS: Breath sounds equal, clear to auscultation bilaterally, no wheezes, no crackles, no accessory muscle use. HEART: Regular rate and rhythm, S1, S2 without murmur, rub or gallop. ABDOMEN: Soft, nontender, nondistended, normoactive bowel sounds, no guarding, no rebound, no hepatosplenomegaly, no masses. EXTREMITIES: 2+ pulses, warm, well-perfused, no edema or calf tenderness. NEUROLOGICAL: Cranial nerves II through XII grossly intact. Normal speech, gait not observed. PSYCH: Normal mood, normal affect. SKIN: Warm, dry, normal turgor, no rashes or lesions noted Laboratory Results - last 24 hr 07/12/19 07/12/19 07/12/19 06:47 06:47 11:15 WBC 4.5 RBC 3.84 Hgb 11.1 Hct 32.7 MCV 85.3 MCH 28.9 MCHC 33.9 RDW 13.3 Plt Count 146 D MPV 7.9 Absolute Neuts (auto) 3.1 Neutrophils % 68.6 Lymphocytes % 23.3 Monocytes % 7.5 Eosinophils % 0.0 D Basophils % 0.6 Nucleated RBC % 0 Sodium 139 Potassium 3.7 Chloride 104 Carbon Dioxide 28 Anion Gap 7 L BUN 9.3 Creatinine 0.9 Est GFR (CKD-EPI)AfAm 85.20 Est GFR (CKD-EPI)NonAf 73.51 Random Glucose 89 Calcium 7.7 L Total Bilirubin 0.4 AST 26 ALT 24 Alkaline Phosphatase 70 Total Protein 6.2 L Albumin 3.0 L RSV Rapid Negative Active Medications Generic Name Dose Route Start Last Admin Trade Name Freq PRN Reason Stop Dose Admin Acetaminophen 650 mg 07/11/19 07:42 07/12/19 03:18 Tylenol - PO 650 mg Q4H PRN Administration FEVER Albuterol Sulfate 1 amp 07/11/19 07:42 Ventolin 0.083% Nebulizer Soln - NEB Q4H PRN SHORT OF BREATH/WHEEZING Enoxaparin Sodium 40 mg 07/11/19 10:00 07/12/19 11:05 Lovenox - SQ 40 mg DAILY JOSE Administration Lactated Ringer's 1,000 mls @ 100 mls/hr 07/11/19 07:45 07/12/19 07:45 Lactated Ringers Solution IV Not Given ASDIR JOSE Ibuprofen 600 mg 07/12/19 12:57 Caldolor Injection - IVPB Q6H PRN PAIN LEVEL 4 - 6 Ondansetron HCl 4 mg 07/11/19 07:42 07/12/19 11:04 Zofran Injection IVPUSH 4 mg Q6H PRN Administration NAUSEA ASSESSMENT/PLAN: Ms. Hess is a 53y/o with asthma who presents with fever, nausea, vomiting, and body aches x 3 days. #sepsis 2/2 viral infection vs urinary tract infection Febrile Tmax 102.0. Tachycardic to 107. No leukocytosis. CXR negative for pneumonia. UA initially was not clean catch but had +2 leuk esterase, with repeat showing trace leuk esterase. Flu negative. -Tylenol and ibuprofen for fever/headache -ceftriaxone day 2 -albuterol PRN -LR 100mL/hr -NPO -Zofran 4mg IV Q6 PRN (QTc 437) -urine culture pending #asthma -albuterol PRN DVT lovenox FEN LR 100mL/hr monitor electrolytes NPO Visit type - Emergency Visit Emergency Visit: Yes ED Registration Date: 07/11/19 Care time: The patient presented to the Emergency Department on the above date and was hospitalized for further evaluation of their emergent condition. - New Patient This patient is new to me today: Yes Date on this admission: 07/12/19 - Critical Care Critical Care patient: No - Discharge Referral Referred to [facility] Med P.C.: No ATTENDING PHYSICIAN STATEMENT I saw and evaluated the patient. I reviewed the resident's note and discussed the case with the resident. I agree with the resident's findings and plan as documented. SUBJECTIVE: OBJECTIVE: ASSESSMENT AND PLAN:
[2019-07-12] MEDS: IBUPROFEN 800 MG/8 ML IJ IVPB PRN (19:50)
[2019-07-12] MEDS ORDERED: VANCOMYCIN 1 GM in D5W (PRE-DOCKED) 1,000 MG/250 ML IVPB ONE (22:28)
[2019-07-12] MEDS ORDERED: ACYCLOVIR IVPB ONE (22:30)
[2019-07-12] MEDS ORDERED: WATER IVPB ONE (22:30)
[2019-07-12] MEDS ORDERED: DEXTROSE 5% IVPB ONE (22:30)
[2019-07-12] MEDS ORDERED: AMPICILLIN - 2 GM in SODIUM CHLORIDE 100 ML IVPB ONE (22:35)
[2019-07-12] MEDS ORDERED: MANNITOL 25% 12.5 GM/50 ML VIAL IVPB ONE (23:24)
[2019-07-13] MEDS: ACETAMINOPHEN 325 MG TABLET (FP) PO PRN ×2 (01:10→05:39)
[2019-07-13] MEDS: LACTATED RINGERS SOLUTION 1,000 ML IV SCH ×2 (05:39→20:11)
[2019-07-13] MEDS: ONDANSETRON 4 MG/2 ML VIAL IVPUSH PRN (05:44)
--- NOTE | 2019-07-13 05:59 | PN ---
Progress Note (short form) - Note Progress Note: 53 y.o. F PMH asthma presented w/ fever, vomiting, generalized myalgias Night team paged by radiation oncology nurse IR specialist regarding CT head results: revealed diffuse left meningeal enhancement indicating meningitis as well as small ventricles, atypical for patient's age raising concern for cerebral edema. VS: 101/57 101 99.1 18 97% Phys exam: Lying in bed nad. AOx3 No neck stiffness. Neg brudzinksis/ neg kernigs sign. Some + photophobia. No headache. Full ROM all extremities #Meningitis -Viral serologies pending -Gave 1g Vanc, 820mg Acyclovir, 2g ampicillin for broad coverage -S/p mannitol 12.5g IV for cerebral edema -Frequent neuro checks Nereyda Castle M.D.- night float Discussed w/ Dr. Milly bentley attending.
--- NOTE | 2019-07-13 06:40 | PN ---
Physical Exam: SUBJECTIVE: Patient seen and examined. She reports headache on top of head that is steady at 5/10. She has some dizziness that is present when standing and walking. She is still having intermittent nausea but has not vomited since yesterday morning. Today she notes that she has mild photophobia that started overnight. She also noted today that she had left side neck pain with extension and left rotation that began about 2 weeks ago and fevers started several days later. Only recent travel history is her drive from [place] 1 month ago in which she moved here. No reported rash. She denies hx of HIV or STIs. She denies sinus pressure, congestion, or sore throat. She reports possible hearing loss over the last couple weeks, especially when on the phone. CT overnight revealed diffuse bilateral smooth leptomeningeal enhancement along cerebral convexities suggestive of meningitis. physically impaired teacher team gave vancomycin, acyclovir, ampicillin, and mannitol. OBJECTIVE: Vital Signs Period Temp Pulse Resp BP Sys/Vargas Pulse Ox Last 24 Hr 98.7 F-103.2 F 85-109 18-20 90-116/52-65 96-97 GENERAL: The patient is awake, alert, and fully oriented, in no acute distress. HEAD: Normal with no signs of trauma. No nuchal rigidity. EYES: PERRL, extraocular movements intact, sclera anicteric, conjunctiva clear. No ptosis. ENT: Ears normal, nares patent, moist mucous membranes, hearing grossly normal. NECK: Trachea midline, full range of motion, supple. LUNGS: Breath sounds equal, clear to auscultation bilaterally, no wheezes, no crackles, no accessory muscle use. HEART: Regular rate and rhythm, S1, S2 without murmur, rub or gallop. ABDOMEN: Soft, nontender, nondistended, normoactive bowel sounds, no guarding, no rebound, no hepatosplenomegaly, no masses. EXTREMITIES: 2+ pulses, warm, well-perfused, no edema or calf tenderness. NEUROLOGICAL: Cranial nerves II through XII grossly intact. Normal speech, gait not observed. PSYCH: Normal mood, normal affect. SKIN: Warm, dry, normal turgor, no rashes or lesions noted Laboratory Results - last 24 hr 07/12/19 07/12/19 07/12/19 06:47 06:47 11:15 WBC 4.5 RBC 3.84 Hgb 11.1 Hct 32.7 MCV 85.3 MCH 28.9 MCHC 33.9 RDW 13.3 Plt Count 146 D MPV 7.9 Absolute Neuts (auto) 3.1 Neutrophils % 68.6 Lymphocytes % 23.3 Monocytes % 7.5 Eosinophils % 0.0 D Basophils % 0.6 Nucleated RBC % 0 Sodium 139 Potassium 3.7 Chloride 104 Carbon Dioxide 28 Anion Gap 7 L BUN 9.3 Creatinine 0.9 Est GFR (CKD-EPI)AfAm 85.20 Est GFR (CKD-EPI)NonAf 73.51 Random Glucose 89 Calcium 7.7 L Total Bilirubin 0.4 AST 26 ALT 24 Alkaline Phosphatase 70 Total Protein 6.2 L Albumin 3.0 L RSV Rapid Negative Active Medications Generic Name Dose Route Start Last Admin Trade Name Freq PRN Reason Stop Dose Admin Acetaminophen 650 mg 07/12/19 17:32 07/13/19 05:39 Tylenol - PO 650 mg Q4H PRN Administration PAIN OR FEVER Albuterol Sulfate 1 amp 07/11/19 07:42 Ventolin 0.083% Nebulizer Soln - NEB Q4H PRN SHORT OF BREATH/WHEEZING Enoxaparin Sodium 40 mg 07/11/19 10:00 07/12/19 11:05 Lovenox - SQ 40 mg DAILY JOSE Administration Lactated Ringer's 1,000 mls @ 125 mls/hr 07/12/19 17:24 07/13/19 05:39 Lactated Ringers Solution IV 125 mls/hr ASDIR JOSE Administration Ibuprofen 600 mg 07/12/19 12:57 07/12/19 19:50 Caldolor Injection - IVPB 600 mg Q6H PRN Administration PAIN LEVEL 4 - 6 Ondansetron HCl 4 mg 07/11/19 07:42 07/13/19 05:44 Zofran Injection IVPUSH 4 mg Q6H PRN Administration NAUSEA ASSESSMENT/PLAN: Ms. Hess is a 53y/o with asthma who presents with fever, nausea, vomiting, and body aches. She reports left side neck pain with extension began about 2 weeks ago with fevers starting several days later. #sepsis 2/[address] revealed diffuse bilateral smooth leptomeningeal enhancement along cerebral convexities suggestive of meningitis. Possible bilateral cerebral edema. physically impaired teacher team gave vancomycin, acyclovir, ampicillin, and mannitol. Febrile Tmax 103.2. Tachycardic to 109. No leukocytosis. Blood and urine cultures negative. CXR negative for pneumonia. UA trace leuk esterase. Flu negative. HIV negative. -ID consulted -neuro consulted- LP planned for today -will resume vancomycin 1500mg Q12 hours, bactrim 400mg Q8 hours, and decadron 10mg Q12 hours after LP -resume ibuprofen 400mg QID PRN headache after LP -regular diet -LR 125mL/hr -Zofran 4mg IV Q6 PRN (QTc 437) #asthma -albuterol PRN DVT lovenox FEN LR 125mL/hr monitor electrolytes regular diet Visit type - Emergency Visit Emergency Visit: Yes ED Registration Date: 07/11/19 Care time: The patient presented to the Emergency Department on the above date and was hospitalized for further evaluation of their emergent condition. - New Patient This patient is new to me today: No - Critical Care Critical Care patient: No - Discharge Referral Referred to [facility] Med P.C.: No ATTENDING PHYSICIAN STATEMENT I saw and evaluated the patient. I reviewed the resident's note and discussed the case with the resident. I agree with the resident's findings and plan as documented. SUBJECTIVE: OBJECTIVE: ASSESSMENT AND PLAN:
[2019-07-13 07:50] LABS: BASO % 0.3 % (0-2.0); HEMATOCRIT 33.9 % (32.4-45.2); HEMOGLOBIN 11.3 GM/dL (10.7-15.3); LYMPH % 25.8 % (8-40); MCH 28.5 pg (25.7-33.7); MCHC 33.4 g/dl (32.0-36.0); MEAN CELL VOLUME 85.4 fl (80-96); MONO % 9.2 % (3.8-10.2); NEUT % 64.7 % (42.8-82.8); PLATELET COUNT 104 K/MM3 (134-434); RBC 3.97 M/mm3 (3.60-5.2); RDW 13.7 % (11.6-15.6)
[2019-07-13 08:24] LABS: ALBUMIN 2.8 g/dl (3.4-5.0); BILIRUBIN,TOTAL 0.4 mg/dL (0.2-1); BLOOD UREA NITROGEN 8.1 mg/dL (7-18); CALCIUM 7.8 mg/dL (8.5-10.1); CREATININE 0.9 mg/dL (0.55-1.3); POTASSIUM 3.6 mmol/L (3.5-5.1); TOT PROT 6.2 g/dl (6.4-8.2)
[2019-07-13] MEDS: IBUPROFEN 800 MG/8 ML IJ IVPB PRN (09:21)
[2019-07-13] MEDS: ENOXAPARIN NA (PORCINE) 40 MG/0.4 ML DISP.SYRIN SQ SCH (09:22)
--- NOTE | 2019-07-13 09:52 | CON.NEURO ---
Consult Consult Specialty:: Bell Referred by:: PCP Reason for Consultation:: TOBIAS and fever - History of Present Illness History of Present Illness: 53 YEAR SOLD WOMAN WITH FEVER AND HEAdcahe Came in from [place] three weeks ago Patient denies fall No rash No tick exposure - History Source History Provided By: Patient Limitations to Obtaining History: No Limitations - Alcohol/Substance Use Hx Alcohol Use: No - Smoking History Smoking history: Never smoked Home Medications - Allergies Allergies/Adverse Reactions: Allergies Allergy/AdvReac Type Severity Reaction Status Date / Time No Known Allergies Allergy Verified 07/11/19 05:03 - Home Medications Home Medications: Ambulatory Orders Albuterol 0.083% Nebulizer Claudia [Ventolin 0.083% Nebulizer Soln -] 1 neb NEB Q6H PRN 07/12/19 Albuterol Sulfate [Proair Respiclick] 2 puff IH Q6H PRN 07/12/19 Review of Systems - Review of Systems Neurological: reports: Headache, Incoordination, Numbness Physical Exam-Neuro Vital Signs: Vital Signs Temperature 99.8 F H 07/13/19 06:15 Pulse Rate 95 H 07/13/19 06:15 Respiratory Rate 20 07/13/19 06:15 Blood Pressure 100/60 07/13/19 06:15 O2 Sat by Pulse Oximetry (%) 96 07/13/19 01:53 Constitutional: Yes: Well Nourished Neck: Yes: WNL Cardiovascular: Yes: WNL Labs: CBC, BMP 07/13/19 07:10 07/13/19 06:21 INR, PTT INR 1.27 (0.83-1.09) H 07/11/19 05:17 - Neuro Exam Level Of Consciousness: Yes: Oriented to Person, Oriented to Place, Oriented to Time Eyes: Yes: PERRLA Speech: WNL Dominant Hand: Right DTR's: 1+ Left Bicep, 1+ Right Bicep, 1+ Left Brachioradialis, 1+ Right Brachioradialis Response to light touch: Normal Response to pain prick: Normal Response to temperature: Normal Motor Strength: 3/5: Left Arm, Right Arm, Left Leg, Right Leg Imaging - Results Cat Scan: Image Reviewed Problem List - Problems (1) Meningitis Assessment/Plan: 1. LP under fluro cells protein culture 2. ID consult 3. Vanco + Bactrim + Decaderon 4. Bed rest 5. IV Tylenol Code(s): G03.9 - MENINGITIS, UNSPECIFIED
[2019-07-13 10:19] LABS: PLATELET ESTIMATE DECREASED
[2019-07-13] MEDS ORDERED: SULFAMETHOXAZOLE 80 MG/TRIMETHOPRIM 16 MG/ML VIAL IVPB SCH ×2 (11:00→11:30)
[2019-07-13] MEDS ORDERED: DEXAMETHASONE SOD PHOSPHATE 10 MG/1 ML VIAL IVPB SCH (11:00)
[2019-07-13] MEDS ORDERED: VANCOMYCIN HCL 1,500 MG in DEXTROSE 5%-WATER - 250 ML IVPB SCH ×2 (11:00→23:15)
[2019-07-13] MEDS ORDERED: VANCOMYCIN HCL 1,500 MG in DEXTROSE 5%-WATER - 250 ML IVPB ONE (11:15)
[2019-07-13] MEDS ORDERED: WATER IVPB SCH ×2 (11:15)
[2019-07-13] MEDS ORDERED: SULFAMETHOXAZOLE IVPB SCH ×2 (11:15)
[2019-07-13] MEDS ORDERED: DEXTROSE 5% IVPB SCH ×2 (11:15)
[2019-07-13] MEDS ORDERED: TRIMETHOPRIM IVPB SCH ×2 (11:15)
[2019-07-13] MEDS ORDERED: VANCOMYCIN HCL 1,500 MG in DEXTROSE 5%-WATER - 500 ML IVPB ONE (11:15)
--- NOTE | 2019-07-13 13:15 | PN ---
Teaching Attending Note Name of Resident: Ольга Garrido ATTENDING PHYSICIAN STATEMENT I saw and evaluated the patient. I reviewed the resident's note and discussed the case with the resident. I agree with the resident's findings and plan as documented. SUBJECTIVE:was c/o worsening TOBIAS with photophobia in the evening and Head CT was done showing suggestion of meningitis. pt now continues to have TOBIAS and photophobia, no real improvement since arrival. body aches slight improvement. denies Cp, SOB, fever, chills, N/V/C/D, rashes. denies HSV lesions in the past. has tested neg for HIV in the past also now states symptoms started about 2 weeks ago OBJECTIVE: Last Vital Signs Temp Pulse Resp BP Pulse Ox 99.8 F H 100 H 18 100/60 98 07/13/19 11:24 07/13/19 09:58 07/13/19 09:58 07/13/19 09:58 07/13/19 09:00 General NAD, neck supple. negative brudniski and kernig signs HEENT +photophobia CV S1 S2 RRR no murmur/rub/gallop Lungs CTA B/L no wheezing/rales/rhonchi ASSESSMENT AND PLAN: 3 year old woman with a history of asthma who presented to the ED with fever, nausea, vomiting, and body aches x 3 days 1. Sepsis due to possible meningitis- Tm 103.2. now developed photophobia but clinically looks well. Head CT done suggesting meningitis. Unable to do LP at this time by IR due to IBU use. will see if neuro is able to perform at this time. received empiric abx overnight, acyclovir, ampicillin, vanco, ceftriaxone. Will consult ID and neuro to see if MRI with milton should be done to see if this is meningitis as sample can not be obtained vs empiric treatment. HIV testing. droplet precautions 2. Asthma- Stable. Albuterol as needed 3. DVT ppx- lovenox
[2019-07-13] MEDS ORDERED: LIDOCAINE HCL 1%, 10 MG/ML (20ML VIAL) ONE (18:37)
[2019-07-13] MEDS ORDERED: PT OWN MED DRAWER 7, Y5N ONE ×2 (18:52→20:03)
--- NOTE | 2019-07-13 18:55 | PN ---
Progress Note (short form) - Note Progress Note: ID CONSULT DICTATED FEVER, LEPTOMENINGEAL ENHANCEMENT ON CT ? VIRAL MENINGITIS LP DONE AWAIT CELL COUNT CSF FOR HSV 1/2 PCR, WNV, VIRAL ENCEPHALITIS PANEL TB PCR, ROUTINE C/S EMPIRIC CEFTRAIXONE/ ACYCLOVIR
--- NOTE | 2019-07-13 19:02 | PROC ---
Lumbar Puncture Indication: menigitis Risks and Benefits Explained: Yes Consent on Chart: Yes Sterile Technique: Yes Skin prep: Betadine Position: Sitting Site: L3-L4 Local Anesthesia: 1% Lidocaine with epi CSF Color, Appearance: Clear Sterile Dressing Applied: Yes (tolertaed well )
[2019-07-13 19:31] LABS: BF GLUCOSE (CSF ONLY) 88 mg/dL (40-70); CSF APPEARANCE CLEAR; CSF COLOR COLORLESS
[2019-07-13 19:40] LABS: CSF WBC 0
[2019-07-13] MEDS ORDERED: DEXTROSE 5%-WATER 100 ML IVPB ONE (20:02)
[2019-07-13] MEDS: CEFTRIAXONE 2 GM in DEXTROSE 5%-WATER 100 ML IVPB SCH (20:04)
[2019-07-13] MEDS: ACYCLOVIR INJECTION 800 MG in DEXTROSE 5%-WATER - 100 ML IVPB SCH (21:29)
[2019-07-13] MEDS ORDERED: VANCOMYCIN HCL 1,500 MG in DEXTROSE 5%-WATER - 500 ML IVPB SCH (23:30)
[2019-07-13] MEDS: DEXAMETHASONE SOD PHOSPHATE 10 MG/1 ML VIAL IVPB SCH (23:37)
[2019-07-14] MEDS ORDERED: MELATONIN 5 MG TABLETS PO ONE (00:19)
[2019-07-14] MEDS: SULFAMETHOXAZOLE 80 MG/TRIMETHOPRIM 16 MG/ML VIAL IVPB SCH ×2 (02:20→13:06)
[2019-07-14] MEDS: ACYCLOVIR INJECTION 800 MG in DEXTROSE 5%-WATER - 100 ML IVPB SCH (03:10)
--- NOTE | 2019-07-14 06:57 | PN ---
Physical Exam: SUBJECTIVE: Patient seen and examined. She reports headache is similar in type and intensity compared to yesterday. She is having dizziness that started yesterday, not positional. She continues to have mild photophobia. Pt tolerating diet well. OBJECTIVE: Vital Signs Period Temp Pulse Resp BP Sys/Vargas Pulse Ox Last 24 Hr 98.0 F-102.7 F 62-100 18-20 91-102/57-60 97-98 GENERAL: The patient is awake, alert, and fully oriented, in no acute distress. Sitting in chair. HEAD: Normal with no signs of trauma. No nuchal rigidity. EYES: PERRL, extraocular movements intact, sclera anicteric, conjunctiva clear. No ptosis. ENT: Ears normal, nares patent, moist mucous membranes, hearing grossly normal. NECK: Trachea midline, full range of motion, supple. LUNGS: Breath sounds equal, clear to auscultation bilaterally, no wheezes, no crackles, no accessory muscle use. HEART: Regular rate and rhythm, S1, S2 without murmur, rub or gallop. ABDOMEN: Soft, nontender, nondistended, normoactive bowel sounds EXTREMITIES: 2+ pulses, warm, well-perfused, no edema or calf tenderness. NEUROLOGICAL: Cranial nerves II through XII grossly intact. Normal speech, gait not observed. PSYCH: Normal mood, normal affect. SKIN: Warm, dry, normal turgor, no rashes or lesions noted Laboratory Results - last 24 hr 07/13/19 07/13/19 07/13/19 06:21 07:10 12:16 WBC 5.0 RBC 3.97 Hgb 11.3 Hct 33.9 MCV 85.4 MCH 28.5 MCHC 33.4 RDW 13.7 Plt Count 104 L D MPV 8.0 Absolute Neuts (auto) 3.2 Neutrophils % 64.7 Lymphocytes % 25.8 Monocytes % 9.2 Eosinophils % 0.0 Basophils % 0.3 Nucleated RBC % 0 Platelet Estimate Decreased Platelet Comment No clumping noted Sodium 139 Potassium 3.6 Chloride 103 Carbon Dioxide 32 Anion Gap 5 L BUN 8.1 Creatinine 0.9 Est GFR (CKD-EPI)AfAm 85.20 Est GFR (CKD-EPI)NonAf 73.51 Random Glucose 100 Calcium 7.8 L Total Bilirubin 0.4 AST 28 ALT 21 Alkaline Phosphatase 63 Total Protein 6.2 L Albumin 2.8 L CSF Appearance CSF Color CSF WBC CSF RBC CSF Neutrophils CSF Lymphocytes CSF Eosinophils CSF Basophils CSF Macrophages CSF Plasma Cells CSF Diff Comment CSF Comment CSF Glucose CSF Total Protein HIV 1&2 Antibody Screen Negative HIV P24 Antigen Negative 07/13/19 18:57 WBC RBC Hgb Hct MCV MCH MCHC RDW Plt Count MPV Absolute Neuts (auto) Neutrophils % Lymphocytes % Monocytes % Eosinophils % Basophils % Nucleated RBC % Platelet Estimate Platelet Comment Sodium Potassium Chloride Carbon Dioxide Anion Gap BUN Creatinine Est GFR (CKD-EPI)AfAm Est GFR (CKD-EPI)NonAf Random Glucose Calcium Total Bilirubin AST ALT Alkaline Phosphatase Total Protein Albumin CSF Appearance Clear CSF Color Colorless CSF WBC 0 CSF RBC 40 CSF Neutrophils No Result Required. CSF Lymphocytes No Result Required. CSF Eosinophils No Result Required. CSF Basophils No Result Required. CSF Macrophages No Result Required. CSF Plasma Cells No Result Required. CSF Diff Comment No Result Required. CSF Comment No Result Required. CSF Glucose 88 H CSF Total Protein 28 HIV 1&2 Antibody Screen HIV P24 Antigen Active Medications Generic Name Dose Route Start Last Admin Trade Name Freq PRN Reason Stop Dose Admin Acetaminophen 1,000 mg 07/13/19 11:28 Ofirmev Injection - IVPB Q6H PRN FEVER Albuterol Sulfate 1 amp 07/11/19 07:42 Ventolin 0.083% Nebulizer Soln - NEB Q4H PRN SHORT OF BREATH/WHEEZING Dexamethasone Sodium Phosphate 10 mg 07/13/19 23:15 07/13/19 23:37 Decadron Injection - IVPB 10 mg BID JOSE Administration Enoxaparin Sodium 40 mg 07/11/19 10:00 07/13/19 09:22 Lovenox - SQ 40 mg DAILY JOSE Administration Lactated Ringer's 1,000 mls @ 125 mls/hr 07/12/19 17:24 07/13/19 20:11 Lactated Ringers Solution IV 125 mls/hr ASDIR JOSE Administration Ceftriaxone Sodium 2 gm/ 100 mls @ 200 mls/hr 07/13/19 19:00 07/13/19 20:04 Dextrose IVPB 200 mls/hr Q12H JOSE Administration Protocol Acyclovir 800 mg/ Dextrose 116 mls @ 116 mls/hr 07/13/19 19:00 07/14/19 03:10 IVPB 116 mls/hr Q8H-IV JOSE Administration Vancomycin HCl 1,500 mg/ 250 mls @ 125 mls/hr 07/13/19 23:15 Dextrose IVPB Q12H JOSE Protocol Vancomycin HCl 1,500 mg/ 500 mls @ 250 mls/hr 07/13/19 23:30 07/14/19 00:24 Dextrose IVPB 07/14/19 13:29 250 mls/hr Q12H JOSE Administration Protocol Ondansetron HCl 4 mg 07/11/19 07:42 07/13/19 05:44 Zofran Injection IVPUSH 4 mg Q6H PRN Administration NAUSEA Trimethoprim/Sulfamethoxazole 400 mg 07/14/19 02:00 07/14/19 02:20 Bactrim Injection - IVPB 400 mg Q8H-IV JOSE Administration Protocol ASSESSMENT/PLAN: Ms. Hess is a 53y/o with asthma who presents with fever, nausea, vomiting, and body aches. She reports left side neck pain with extension began about 2 weeks ago with fevers starting several days later. #sepsis 2/2 possible meningitis LP performed yesterday. Clear fluid. Normal protein, mildly elevated glucose, RBCs 40, no WBCs. CT revealed diffuse bilateral smooth leptomeningeal enhancement along cerebral convexities suggestive of meningitis. Possible bilateral cerebral edema. housecalls nurse team gave vancomycin, acyclovir, ampicillin, and mannitol. Febrile Tmax 99.8. Tachycardia resolved. No leukocytosis. Blood and urine cultures negative. CXR negative for pneumonia. UA trace leuk esterase. Flu negative. HIV negative. -LP labs pending- Lyme, West Nile, encephalitis, LA, HSV -CBC -BMP -ID following -neuro following -ibuprofen PRN headache -acyclovir -ceftriaxone -vancomycin, bactrim, and decadron d/c'ed -regular diet -LR 125mL/hr -Zofran 4mg IV Q6 PRN (QTc 437) -isolation precautions no longer needed #asthma -albuterol PRN DVT lovenox FEN LR 125mL/hr monitor electrolytes regular diet Visit type - Emergency Visit Emergency Visit: Yes ED Registration Date: 07/11/19 Care time: The patient presented to the Emergency Department on the above date and was hospitalized for further evaluation of their emergent condition. - New Patient This patient is new to me today: No - Critical Care Critical Care patient: No - Discharge Referral Referred to [facility] No ATTENDING PHYSICIAN STATEMENT I saw and evaluated the patient. I reviewed the resident's note and discussed the case with the resident. I agree with the resident's findings and plan as documented. SUBJECTIVE: OBJECTIVE: ASSESSMENT AND PLAN:
[2019-07-14] MEDS: CEFTRIAXONE 2 GM in DEXTROSE 5%-WATER 100 ML IVPB SCH ×2 (07:15→18:32)
[2019-07-14] MEDS ORDERED: DEXTROSE 5%-WATER 100 ML IVPB ONE ×2 (07:54→18:01)
[2019-07-14 08:10] LABS: BASO % 0.1 % (0-2.0); HEMATOCRIT 34.1 % (32.4-45.2); HEMOGLOBIN 11.6 GM/dL (10.7-15.3); LYMPH % 14.7 % (8-40); MCH 28.7 pg (25.7-33.7); MEAN CELL VOLUME 84.6 fl (80-96); MONO % 3.3 % (3.8-10.2); NEUT % 81.9 % (42.8-82.8); PLATELET COUNT 111 K/MM3 (134-434); RBC 4.04 M/mm3 (3.60-5.2); RDW 13.5 % (11.6-15.6); WHITE BLOOD COUNT 5.8 K/mm3 (4.0-10.0)
[2019-07-14] MEDS ORDERED: PT OWN MED DRAWER 7, Y5N ONE ×2 (08:49→19:12)
[2019-07-14] MEDS: ENOXAPARIN NA (PORCINE) 40 MG/0.4 ML DISP.SYRIN SQ SCH (10:29)
[2019-07-14] MEDS: ACYCLOVIR INJECTION 800 MG in DEXTROSE 5%-WATER - 250 ML IVPB SCH ×2 (12:02→17:24)
[2019-07-14] MEDS: DEXAMETHASONE SOD PHOSPHATE 10 MG/1 ML VIAL IVPB SCH (12:44)
[2019-07-14] MEDS: ACETAMINOPHEN 1000 MG/100 ML VIAL (NON FORMULARY) IVPB PRN (13:57)
--- NOTE | 2019-07-14 14:28 | PN ---
Teaching Attending Note Name of Resident: Ольга Garrido ATTENDING PHYSICIAN STATEMENT I saw and evaluated the patient. I reviewed the resident's note and discussed the case with the resident. I agree with the resident's findings and plan as documented. SUBJECTIVE:TOBIAS mostly resovled. no longer having photophobia. denies Cp, SOB, fever, chills, N/V/C/D OBJECTIVE: Last Vital Signs Temp Pulse Resp BP Pulse Ox 97.8 F 79 18 96/59 L 97 07/14/19 11:11 07/14/19 11:11 07/14/19 11:11 07/14/19 11:11 07/14/19 09:00 General NAD, neck supple. negative brudniski and kernig signs HEENT - photophobia CV S1 S2 RRR no murmur/rub/gallop Lungs CTA B/L no wheezing/rales/rhonchi ASSESSMENT AND PLAN: 3 year old woman with a history of asthma who presented to the ED with fever, nausea, vomiting, and body aches x 3 days 1. Sepsis due to possible meningitis- Tm 102.7 but been afebrile since yesterday afternoon. symptoms mostly resolved. LP done and negative for infection. on prophylactic treatment. willl d/w ID about stopping abx and monitor off. HIV negative. droplet precautions 2. Asthma- Stable. Albuterol as needed 3. DVT ppx- lovenox 4. spoke with daughter present at bedside. all questions answered. verbalized understanding and agreement
[2019-07-14] MEDS ORDERED: IBUPROFEN 400 MG TABLET (FP) PO PRN (16:23)
--- NOTE | 2019-07-14 16:54 | PN ---
Progress Note, Physician History of Present Illness: AWAKE IN BED C/O HEADACHE TEMPS DOWN TODAY WBC WNL CSF NO WBC GRAM STAIN NEGATIVE - Current Medication List Current Medications: Active Medications Acetaminophen (Ofirmev Injection -) 1,000 mg IVPB Q6H PRN PRN Reason: FEVER Last Admin: 07/14/19 13:57 Dose: 1,000 mg Albuterol Sulfate (Ventolin 0.083% Nebulizer Soln -) 1 amp NEB Q4H PRN PRN Reason: SHORT OF BREATH/WHEEZING Enoxaparin Sodium (Lovenox -) 40 mg SQ DAILY JOSE Last Admin: 07/14/19 10:29 Dose: 40 mg Lactated Ringer's (Lactated Ringers Solution) 1,000 mls @ 125 mls/hr IV ASDIR JOSE Last Admin: 07/13/19 20:11 Dose: 125 mls/hr Ceftriaxone Sodium 2 gm/ (Dextrose) 100 mls @ 200 mls/hr IVPB Q12H JOSE; Protocol Last Admin: 07/14/19 07:15 Dose: 200 mls/hr Acyclovir 800 mg/ Dextrose 266 mls @ 266 mls/hr IVPB Q8H-IV JOSE Last Admin: 07/14/19 12:02 Dose: 266 mls/hr Ibuprofen (Motrin -) 400 mg PO Q6H PRN PRN Reason: PAIN LEVEL 4 - 6 Ondansetron HCl (Zofran Injection) 4 mg IVPUSH Q6H PRN PRN Reason: NAUSEA Last Admin: 07/13/19 05:44 Dose: 4 mg - Objective Vital Signs: Vital Signs Temperature 98.6 F 07/14/19 14:56 Pulse Rate 75 07/14/19 14:56 Respiratory Rate 18 07/14/19 14:56 Blood Pressure 99/66 07/14/19 14:56 O2 Sat by Pulse Oximetry (%) 97 07/14/19 09:00 Constitutional: Yes: No Distress Eyes: Yes: Conjunctiva Clear Neck: Yes: Supple Cardiovascular: Yes: Regular Rate and Rhythm, S1, S2 Respiratory: Yes: CTA Bilaterally Gastrointestinal: Yes: Normal Bowel Sounds, Soft. No: Tenderness Edema: No Labs: CBC, BMP 07/14/19 07:39 07/13/19 06:21 INR, PTT INR 1.27 (0.83-1.09) H 07/11/19 05:17 Assessment/Plan HEADACHE, FEVER ? SOURCE CSF NOT C/W MENINGITIS AWAIT CULTURES CONTINUE CEFTRIAXONE/ ACV MONITOR TEMPS
[2019-07-14] MEDS: LACTATED RINGERS SOLUTION 1,000 ML IV SCH (17:23)
[2019-07-14] MEDS ORDERED: RANITIDINE HCL 150 MG TABLET (FP) PO ONE (20:27)
[2019-07-14] MEDS ORDERED: diphenhydrAMINE HCL 25 MG CAPSULE (FP) PO ONE (20:34)
[2019-07-15] MEDS: ACYCLOVIR INJECTION 800 MG in DEXTROSE 5%-WATER - 250 ML IVPB SCH ×2 (01:28→09:20)
[2019-07-15] MEDS ORDERED: DEXTROSE 5%-WATER 100 ML IVPB ONE (05:49)
[2019-07-15] MEDS: CEFTRIAXONE 2 GM in DEXTROSE 5%-WATER 100 ML IVPB SCH (06:09)
[2019-07-15] MEDS: ONDANSETRON 4 MG/2 ML VIAL IVPUSH PRN (08:14)
[2019-07-15] MEDS ORDERED: diphenhydrAMINE HCL 25 MG CAPSULE (FP) PO PRN (08:26)
[2019-07-15 08:35] LABS: BASO % 0.1 % (0-2.0); HEMATOCRIT 31.3 % (32.4-45.2); HEMOGLOBIN 10.6 GM/dL (10.7-15.3); LYMPH % 23.8 % (8-40); MCH 28.6 pg (25.7-33.7); MEAN CELL VOLUME 84.2 fl (80-96); MEAN PLT VOLUME 8.1 fl (7.5-11.1); MONO % 7.6 % (3.8-10.2); NEUT % 68.5 % (42.8-82.8); PLATELET COUNT 122 K/MM3 (134-434); RBC 3.71 M/mm3 (3.60-5.2); RDW 13.7 % (11.6-15.6)
[2019-07-15] MEDS: ENOXAPARIN NA (PORCINE) 40 MG/0.4 ML DISP.SYRIN SQ SCH (09:20)
--- NOTE | 2019-07-15 14:25 | PN ---
Progress Note, Physician History of Present Illness: vents noted Chart reviewed Alert awake oriented No report of any altered sensorium or seizure-like activity results of the CSF will be monitored Culture of the CSF is negative - Current Medication List Current Medications: Active Medications Acetaminophen (Ofirmev Injection -) 1,000 mg IVPB Q6H PRN PRN Reason: FEVER Last Admin: 07/14/19 13:57 Dose: 1,000 mg Albuterol Sulfate (Ventolin 0.083% Nebulizer Soln -) 1 amp NEB Q4H PRN PRN Reason: SHORT OF BREATH/WHEEZING Diphenhydramine HCl (Benadryl -) 25 mg PO Q6H PRN PRN Reason: FOR ITCHING Enoxaparin Sodium (Lovenox -) 40 mg SQ DAILY JOSE Last Admin: 07/15/19 09:20 Dose: 40 mg Ceftriaxone Sodium 2 gm/ (Dextrose) 100 mls @ 200 mls/hr IVPB Q12H JOSE; Protocol Last Admin: 07/15/19 06:09 Dose: 200 mls/hr Acyclovir 800 mg/ Dextrose 266 mls @ 266 mls/hr IVPB Q8H-IV JOSE Last Admin: 07/15/19 09:20 Dose: 266 mls/hr Ibuprofen (Motrin -) 400 mg PO Q6H PRN PRN Reason: PAIN LEVEL 4 - 6 Last Admin: 07/15/19 10:43 Dose: 400 mg Ondansetron HCl (Zofran Injection) 4 mg IVPUSH Q6H PRN PRN Reason: NAUSEA Last Admin: 07/15/19 08:14 Dose: 4 mg - Objective Vital Signs: Vital Signs Temperature 97.9 F 07/15/19 13:43 Pulse Rate 72 07/15/19 13:43 Respiratory Rate 17 07/15/19 13:43 Blood Pressure 108/68 07/15/19 13:43 O2 Sat by Pulse Oximetry (%) 97 07/15/19 09:00 Constitutional: Yes: Well Nourished Eyes: Yes: WNL Neurological: Yes: Alert, Oriented, Babinski negative ...Motor Strength: WNL Labs: CBC, BMP 07/15/19 08:10 07/13/19 06:21 INR, PTT INR 1.27 (0.83-1.09) H 09/30/19 05:17 Problem List - Problems (1) Meningitis Assessment/Plan: no evidence of meningitis so far Headache post LP. Viral syndrome . Increase by mouth fluid intake. 2. Follow-up the blood culture. 3. Follow-up with ID. Code(s): G03.9 - MENINGITIS, UNSPECIFIED
--- NOTE | 2019-07-15 14:38 | PN ---
Progress Note, Physician History of Present Illness: AWAKE IN BED REPORTS DEVELOPING RASH ON FACE, HEAD AND UPPER CHEST WHICH HAS RESOLVED NO C/O HEADACHE TEMPS REMAIN DOWN WBC WNL CSF NO WBC GRAM STAIN NEGATIVE, C/S (-) - Current Medication List Current Medications: Active Medications Acetaminophen (Ofirmev Injection -) 1,000 mg IVPB Q6H PRN PRN Reason: FEVER Last Admin: 07/14/19 13:57 Dose: 1,000 mg Albuterol Sulfate (Ventolin 0.083% Nebulizer Soln -) 1 amp NEB Q4H PRN PRN Reason: SHORT OF BREATH/WHEEZING Diphenhydramine HCl (Benadryl -) 25 mg PO Q6H PRN PRN Reason: FOR ITCHING Enoxaparin Sodium (Lovenox -) 40 mg SQ DAILY JOSE Last Admin: 07/15/19 09:20 Dose: 40 mg Ibuprofen (Motrin -) 400 mg PO Q6H PRN PRN Reason: PAIN LEVEL 4 - 6 Last Admin: 07/15/19 10:43 Dose: 400 mg Ondansetron HCl (Zofran Injection) 4 mg IVPUSH Q6H PRN PRN Reason: NAUSEA Last Admin: 07/15/19 08:14 Dose: 4 mg - Objective Vital Signs: Vital Signs Temperature 97.9 F 07/15/19 13:43 Pulse Rate 72 07/15/19 13:43 Respiratory Rate 17 07/15/19 13:43 Blood Pressure 108/68 07/15/19 13:43 O2 Sat by Pulse Oximetry (%) 97 07/15/19 09:00 Constitutional: Yes: No Distress Eyes: Yes: Conjunctiva Clear Cardiovascular: Yes: Regular Rate and Rhythm, S1, S2 Respiratory: Yes: CTA Bilaterally Gastrointestinal: Yes: Normal Bowel Sounds, Soft. No: Tenderness Integumentary: Yes: Other (FEW TINY RED PAPULES, LOWER FACE NO OTHER RASH NOTED) Labs: CBC, BMP 07/15/19 08:10 07/13/19 06:21 INR, PTT INR 1.27 (0.83-1.09) H 07/11/19 05:17 Assessment/Plan HEADACHE, FEVER RESOLVED ? VIRAL SYNDROME ?NOW WITH DRUG RASH CSF NOT C/W MENINGITIS AFEBRILE, NORMAL WBC , C/S (-) DISCONTINUE CEFTRIAXONE/ ACV
[2019-07-15] MEDS: ACETAMINOPHEN 1000 MG/100 ML VIAL (NON FORMULARY) IVPB PRN (15:07)
--- NOTE | 2019-07-15 15:07 | PN ---
Teaching Attending Note Name of Resident: Ольга Garrido ATTENDING PHYSICIAN STATEMENT I saw and evaluated the patient. I reviewed the resident's note and discussed the case with the resident. I agree with the resident's findings and plan as documented. SUBJECTIVE:developed chest erythema and pruritis last ngiht after starting ceftiraxone. denies Cp, SOB, fever, chills, N/V/C/D, TOBIAS, blurred vision or photophobia OBJECTIVE: Last Vital Signs Temp Pulse Resp BP Pulse Ox 97.9 F 72 17 108/68 97 07/15/19 13:43 07/15/19 13:43 07/15/19 13:43 07/15/19 13:43 07/15/19 09:00 General NAD, skin erythema along anterior chest with some excoriations some patchy on the back as well ASSESSMENT AND PLAN: 3 year old woman with a history of asthma who presented to the ED with fever, nausea, vomiting, and body aches x 3 days 1. Sepsis due to possible meningitis-afebrile >24H. all cx negative. d/c abx. symptoms now resolved. likely some viral etiology 2. Drug rash- likely reaction to ceftriaxone as noted to have some erythema but not as severe after 1st dose. improvement with benadryl.will add allergy to computer 3. Asthma- Stable. Albuterol as needed 4. DVT ppx- lovenox 5. d/c home
--- NOTE | 2019-07-15 15:22 | DS ---
Physical Exam: SUBJECTIVE: Patient seen and examined. She denies headaches at time of interview. She reports dizziness when sitting and standing. She had 2 episodes of vomiting after eating yesterday afternoon. She has not had Zofran. She denies chest pain, abdominal pain, fever, and chills. OBJECTIVE: Vital Signs Period Temp Pulse Resp BP Sys/Vargas Pulse Ox Last 24 Hr 97.9 F-98.2 F 62-73 16-18 103-108/46-68 97-97 PHYSICAL EXAM GENERAL: The patient is awake, alert, and fully oriented, in no acute distress. Sitting in chair. HEAD: Normal with no signs of trauma. No nuchal rigidity. EYES: PERRL, extraocular movements intact, sclera anicteric, conjunctiva clear. No ptosis. ENT: Ears normal, nares patent, moist mucous membranes, hearing grossly normal. NECK: Trachea midline, full range of motion, supple. LUNGS: Breath sounds equal, clear to auscultation bilaterally, no wheezes, no crackles, no accessory muscle use. HEART: Regular rate and rhythm, S1, S2 without murmur, rub or gallop. ABDOMEN: Soft, nontender, nondistended, normoactive bowel sounds EXTREMITIES: 2+ pulses, warm, well-perfused, no edema or calf tenderness. NEUROLOGICAL: Cranial nerves II through XII grossly intact. Normal speech, gait not observed. PSYCH: Normal mood, normal affect. SKIN: Warm, dry, normal turgor, no rashes or lesions noted LABS Laboratory Results - last 24 hr 07/14/19 07/15/19 18:40 08:10 WBC 6.0 RBC 3.71 Hgb 10.6 L Hct 31.3 L MCV 84.2 MCH 28.6 MCHC 34.0 RDW 13.7 Plt Count 122 L MPV 8.1 Absolute Neuts (auto) 4.1 Neutrophils % 68.5 Lymphocytes % 23.8 D Monocytes % 7.6 D Eosinophils % 0.0 Basophils % 0.1 Nucleated RBC % 0 POC Glucometer 146 HOSPITAL COURSE: Ms. Hess is a 53y/o with asthma who presents with fever, nausea, vomiting, and body aches x 3 days. She reports left side neck pain with extension began about 2 weeks ago with fevers starting several days later. Tmx 103, tachycardic , no leukocytosis. LP performed- clear fluid, normal protein, mildly elevated glucose, RBCs 40, no WBCs. CT revealed diffuse bilateral smooth leptomeningeal enhancement along cerebral convexities suggestive of meningitis and possible bilateral cerebral edema. LP labs pending- Lyme, West Nile, encephalitis, LA, HSV. Pt was given tylenol and motrin for headaches and fever, and zofran for nausea, and IV fluids. Symptoms improved but pt reported intermittent dizziness. She was treated with empiric vanc, ceftriaxone, acyclovir, and decadron which were discontinued after LP. Pt had rash and pruritis covering chest, upper back, face, and scalp after ceftriaxone use which improved after stopping med. It is uncertain if rash was caused by ceftriaxone, but pt instructed to be cautious about future use of med. Pt was discharged and will follow up with Dr. Luu for final LP results. Date of Admission:07/11/19 Date of Discharge: 07/15/19 Minutes to complete discharge: 35 Discharge Summary Problems reviewed: Yes Reason For Visit: GENERALIZED BODY ACHES,FEVER,TACHYCARDIA,VOMITING Current Active Problems Fever (Acute) Generalized body aches (Acute) Meningitis (Acute) Tachycardia (Acute) Vomiting alone (Acute) Condition: Stable - Instructions Diet, Activity, Other Instructions: Hospital Visit: You were admitted to the hospital for fevers, vomiting, and headaches. A lumbar puncture was preformed and you were not found to have meningitis. You completed a 5 day course of antibiotics and antivirals. Your headache improved, your fevers resolved, and you are ready to go home. You do not need antibiotics or antivirals anymore. Your hemoglobin (red blood cells) count was a little low. It should be monitored after you are discharged to see if you have anemia. You received an antibiotic called ceftriaxone (Rocephin) that MAY have caused a rash. If you are prescribed an antibiotic in the future, you should tell the physician you MAY have had a rash after taking ceftriaxone. Medications: Continue your home medication as directed. You may take ibuprofen as directed on the bottle for your headache. Follow up with: Dr. Luu, neurology, in the next 1-2 weeks to see if you need any further labwork or CAT scans done. He will also be able give you the rest of your lumbar puncture lab lab results. Dr. Garrido (resident) and Dr. Hilliard, for primary care and to check your hemoglobin level. Please continue to hydrate by drinking more fluids. Other instructions: Return to the emergency room if your headache or fever above 101 returns. Also return to the ER if you start vomiting again, your neck hurts or is stiff, dizziness worsens, if you get chest pain or shortness of breath, blood in vomit , or dark stools. Referrals: Linda Hilliard MD [Staff Physician] - Macey Luu MD [Staff Physician] - Disposition: HOME - Home Medications Comprehensive Discharge Medication List: Ambulatory Orders Albuterol 0.083% Nebulizer Claudia [Ventolin 0.083% Nebulizer Soln -] 1 neb NEB Q6H PRN 07/12/19 Albuterol Sulfate [Proair Respiclick] 2 puff IH Q6H PRN 07/12/19 This patient is new to me today: No Emergency Visit: No Critical Care patient: No - Discharge Referral Referred to [facility] No ATTENDING PHYSICIAN STATEMENT I saw and evaluated the patient. I reviewed the resident's note and discussed the case with the resident. I agree with the resident's findings and plan as documented. SUBJECTIVE: OBJECTIVE: ASSESSMENT AND PLAN:
[2019-07-15 19:39] VITALS: BP 114/80; PULSE 70; TEMP 97.3
[2019-07-18 17:06] LABS: HERPES SIMPLEX TYPE 1 IGM 0.38 IV (<=0.89)
[2019-07-19 11:07] LABS: LYME PCR CSF Negative (Negative)
[2019-07-19 18:07] LABS: MUMPS AB IGG CSF < 5.0 AU/mL (<=10.9)
== END 2019-07-15 20:47 | disposition home or self-care (01) | DRG 720 ==
LOC: JER 04:52 → JERBED 06:58 → J5S 10:51 → J6S 07-13 01:06
PROVIDERS: ADMIT Internal Medicine; ATTEND Internal Medicine
PROC: 009U3ZZ Drainage of Spinal Canal, Percutaneous Approach (ICD-10-PCS; principal; 2019-07-13)
DX: A41.9 Sepsis, unspecified organism (principal); G93.6 Cerebral edema; E86.0 Dehydration; J45.909 Unspecified asthma, uncomplicated; B34.9 Viral infection, unspecified; L27.0 Generalized skin eruption due to drugs and medicaments taken internally; T36.1X5A Adverse effect of cephalosporins and other beta-lactam antibiotics, initial encounter
CPT/HCPCS: 36415; 70470-TC; 71045-TC-FY; 80053; 81003; 82803; 82945; 82962; 83605; 84157; 84484; 85025; 85610; 85730; 86694; 86735; 86765; 86787; 86788; 86789; 87040; 87070; 87086; 87205; 87389; 87476; 87529; 87633; 87804; 87807; 90732; 93005; 93010; 99285-25; G0009; J0131; J1100; J7030; Q2036

== ENCOUNTER 2019-07-16 11:34 | Emergency (ER) | payer SELFPAY ==
[2019-07-16 12:09] VITALS: BMI 28.8
--- NOTE | 2019-07-16 12:28 | PDOC ---
History of Present Illness - General Chief Complaint: Nausea Stated Complaint: NAUSEA - History of Present Illness Initial Comments: The pt is a 53F w/ a history of asthma who was discharged yesterday after being admitted for concern for meningitis (w/ negative serologies) who presents for persistent headache and nausea. The pt reports she was discharged w/o her TOBIAS resolving. She reports 1 episode of NBNB emesis yesterday and 3 today. She states her TOBIAS is worse with sitting/standing, is associated with vertiginous dizziness, and is mildly improved by laying down. She did not take anything for her headache at home and was not prescribed anything for her TOBIAS or nausea. She denies fevers, chest pain, cough, diarrhea, dysuria, blood in her emesis/ stool/urine, or changes in sensation 07/16/19 12:42 Past History - Past Medical History Allergies/Adverse Reactions: Allergies Allergy/AdvReac Type Severity Reaction Status Date / Time ceftriaxone Allergy Mild Rash Verified 07/16/19 11:58 Home Medications: Ambulatory Orders Albuterol 0.083% Nebulizer Claudia [Ventolin 0.083% Nebulizer Soln -] 1 neb NEB Q6H PRN 07/12/19 Albuterol Sulfate [Proair Respiclick] 2 puff IH Q6H PRN 07/12/19 Acetaminophen/Caffeine/Butalb [Fioricet -] 1 tab PO Q6H PRN #28 tablet MDD 4 tabs 07/16/19 Acetaminophen/Caffeine/Butalb [Fioricet -] 1 tab PO TID PRN #12 tablet MDD 3 02/27 Metoclopramide HCl [Reglan -] 10 mg PO BID PRN #14 tablet 07/16/19 Ondansetron [Zofran *Odt*] 4 mg SL TID PRN #21 od.tablet 07/16/19 Asthma: Yes COPD: No - Surgical History GI Surgery: Yes (prolapsed bladder) - Psycho Social/Smoking Cessation Hx Smoking History: Unknown if ever smoked Have you smoked in the past 12 months: No Information on smoking cessation initiated: No Hx Alcohol Use: No Drug/Substance Use Hx: No Review of Systems - Review of Systems Able to Perform ROS?: Yes Comments:: GENERAL/CONSTITUTIONAL: No fever or chills. No weakness HEAD, EYES, EARS, NOSE AND THROAT: No change in vision. No change in hearing. No sore throat CARDIOVASCULAR: No chest pain or shortness of breath RESPIRATORY: Denies cough, hemoptysis GASTROINTESTINAL: +N/V; denies diarrhea or constipation GENITOURINARY: No dysuria, frequency, or change in urination MUSCULOSKELETAL: No joint or muscle swelling or pain. No neck or back pain SKIN: No rash NEUROLOGIC: +headache, dizziness, denies loss of consciousness, or change in strength/sensation ENDOCRINE: No increased thirst. No abnormal weight change HEMATOLOGIC/LYMPHATIC: No anemia, easy bleeding, or history of blood clots ALLERGIC/IMMUNOLOGIC: No hives or skin allergy 07/16/19 12:28 Is the patient limited [place] proficient: No *Physical Exam - Vital Signs Last Vital Signs Temp Pulse Resp BP Pulse Ox 97.4 F L 59 L 16 102/62 100 07/16/19 11:55 07/16/19 11:55 07/16/19 11:55 07/16/19 11:55 07/16/19 11:55 - Physical Exam Comments: GENERAL: Awake, alert, and oriented to person/place/time, in no acute distress HEAD: No signs of trauma, normocephalic, atraumatic EYES: PERRLA, EOMI, sclera anicteric, conjunctiva clear ENT: Hearing grossly normal, nares patent, oropharynx clear without exudates. Moist mucosa LUNGS: No distress, speaks in full sentences, clear to auscultation bilaterally HEART: Regular rate and rhythm, normal S1 and S2, no murmurs appreciated, peripheral pulses normal and equal bilaterally ABDOMEN: Soft, protuberant, mild epigastric TTP w/o rebound or guarding, normoactive bowel sounds EXTREMITIES: Normal inspection, Normal range of motion, no edema. No clubbing or cyanosis NEUROLOGICAL: Cranial nerves II through XII grossly intact. Normal speech, no focal sensorimotor deficits SKIN: Warm, Dry 07/16/19 12:28 ED Treatment Course - LABORATORY CBC & Chemistry Diagram: 07/16/19 13:10 07/16/19 13:10 Medical Decision Making - Medical Decision Making The pt is a 53F w/ a history of asthma, s/p recent LP who presents for persistent TOBIAS w/ N/V ED Course Labs sent Tylenol, caffeine, Benadryl, Reglan, and IVF for symptomatic relief Will reassess 07/16/19 12:48 Caffeine not available and pt does not wish to try coffee at this time 07/16/19 13:28 Will give Fioricet 1tab PO once 07/16/19 13:52 No leukocytosis No anemia Lytes wnl No SHAY LFTs wnl 07/16/19 13:53 The pt reports feeling moderately improved s/p Fioricet. States nausea resolved but would like to wait a little before trialling PO 07/16/19 15:03 Rx for fioricet, reglan, and zofran sent to pt's pharmacy Plan for D/C w/ PCP and neuro f/u Discharge instructions and return precautions given Pt in agreement and verbalized understanding Dispo: home 07/16/19 17:29 Discharge - Discharge Information Problems reviewed: Yes Clinical Impression/Diagnosis: Headache Qualifiers: Headache type: unspecified Headache chronicity pattern: unspecified pattern Intractability: not intractable Qualified Code(s): R51 - Headache Condition: Improved - Admission No - Additional Discharge Information Prescriptions: Acetaminophen/Caffeine/Butalb [Fioricet -] 1 tab PO Q6H PRN #28 tablet MDD 4 tabs PRN Reason: Headache Acetaminophen/Caffeine/Butalb [Fioricet -] 1 tab PO TID PRN #12 tablet MDD 3 PRN Reason: severe headache Metoclopramide HCl [Reglan -] 10 mg PO BID PRN #14 tablet PRN Reason: Headache Ondansetron [Zofran *Odt*] 4 mg SL TID PRN #21 od.tablet PRN Reason: Nausea And/Or Vomiting - Follow up/Referral Referrals: [facility] [place] [facility] [place] [Provider Group] Macey Luu MD [Staff Physician] - - Patient Discharge Instructions Patient Printed Discharge Instructions: DI for Post-Spinal Puncture Headache Additional Instructions: You were seen in the Emergency Department for evaluation of headache. Your labs were unremarkable. Review the handout provided at discharge. A prescription for Fioricet, Zofran, and Reglan was sent to your pharmacy. You may take Tylenol 650mg every 6 hours for pain. If that does not help you may take the Fioricet and reglan on top of the Tylenol. Do no exceed a total of 4 grams of Tylenol a day. The zofran is as needed for nausea/vomiting. Follow up with your primary care provider within a week. Return to the Emergency Department if you develop fevers/chills, chest pain, trouble breathing, worsening symptoms despite medication use, changes in sensation, or any new/concerning symptoms. - Post Discharge Activity
--- NOTE | 2019-07-16 12:39 | PDOC ---
Attending Attestation - Resident Resident Name: Jim Mcmillan - ED Attending Attestation I have performed the following: I have examined & evaluated the patient, The case was reviewed & discussed with the resident, I agree w/resident's findings & plan, Exceptions are as noted - HPI HPI: 07/16/19 13:39 Ms Hess is a 53 yo F who present to the ER with a persistent headache Pt was recently admitted to the hospital for fevers and body aches Pt then was noted to have a headache Neuro was consulted and LP was performed (CSF clear, 40 red cells, Lyme/West Nile pending) PT states that she she has had NO relief from her headache whatsoever She was discharge on Ibuprofen but this has not helped She has had difficulty tolerating po due to nausea and vomiting (+) photophobia, (+) phonophobia Pt reports headache is constant but slightly worsens with standing She also notes that she is dizzy when she stands No additional fevers 07/16/19 13:45 07/16/19 13:51 - Physicial Exam PE: 07/16/19 13:44 GENERAL: The patient is in no acute distress. ENT: Dry mucous membranes. NECK: Normal range of motion, supple LUNGS: Breath sounds equal, clear to auscultation bilaterally. No wheezes, and no crackles. HEART:Regular rate and rhythm, normal S1 and S2 without murmur, rub or gallop. ABDOMEN: Soft, nontender, normoactive bowel sounds. EXTREMITIES: Normal range of motion, no edema. NEUROLOGICAL: Cranial nerves II through XII grossly intact. Normal speech. No focal neurological deficits. SKIN: Warm, Dry, normal turgor, no rashes or lesions noted. - Medical Decision Making 07/16/19 13:52 53 yo F presenting with persistent headache LP negative so far Pt had headache prior to LP but does describe elements of a post LP headache Will do Labs IVF Analgesia - Tylenol, Reglan, Fiorecet Re Assess 07/16/19 13:54 Laboratory Tests 07/16/19 07/16/19 13:10 13:10 WBC 4.7 Hgb 11.9 Hct 35.2 Plt Count 153 D BUN 13.5 Creatinine 0.8 Pt initially given Tylenol/Reglan/IVF Minimal improvement Pt offered coffee but she doesn't drink coffee much Pt written for Fiorecet PT improved with this She feels well enough to go home, though still in pain pt asked to continue taking Fiorecet/Caffeine and hydrating as much as possibles iF symproms worsen or change, return to the ER Clinical impressionL Headache, repeat presentation Post LP headache, initial presentation
[2019-07-16] MEDS ORDERED: ONDANSETRON 4 MG/2 ML VIAL IVPUSH ONE (12:40)
[2019-07-16] MEDS ORDERED: METOCLOPRAMIDE HCL INJECTION 10 MG/2 ML VIAL IVPUSH ONE (12:40)
[2019-07-16] MEDS ORDERED: ACETAMINOPHEN 1000 MG/100 ML VIAL (NON FORMULARY) IVPB ONE (12:40)
[2019-07-16] MEDS ORDERED: SODIUM CHLORIDE 0.9% 500 ML INFUS.BAG IV ONE ×2 (12:40→15:21)
[2019-07-16] MEDS ORDERED: CAFFEINE CITRATE 60 MG/3 ML VIAL (ORAL USE ONLY) PO ONE (12:41)
[2019-07-16] MEDS ORDERED: METOCLOPRAMIDE HCL INJECTION 10 MG/2 ML VIAL ONE (12:59)
[2019-07-16] MEDS ORDERED: ONDANSETRON 4 MG/2 ML VIAL ONE (13:00)
[2019-07-16] MEDS ORDERED: ACETAMINOPHEN INJECTION 100 ML IVPB ONE (13:00)
[2019-07-16 13:46] LABS: BASO % 0.3 % (0-2.0); EOS % 0.5 % (0-4.5); HEMATOCRIT 35.2 % (32.4-45.2); HEMOGLOBIN 11.9 GM/dL (10.7-15.3); MCH 28.7 pg (25.7-33.7); MCHC 33.9 g/dl (32.0-36.0); MEAN CELL VOLUME 84.8 fl (80-96); MEAN PLT VOLUME 7.6 fl (7.5-11.1); MONO % 11.1 % (3.8-10.2); NEUT % 66.1 % (42.8-82.8); PLATELET COUNT 153 K/MM3 (134-434); RBC 4.16 M/mm3 (3.60-5.2); RDW 13.5 % (11.6-15.6); WHITE BLOOD COUNT 4.7 K/mm3 (4.0-10.0)
[2019-07-16 13:50] LABS: ALBUMIN 3.1 g/dl (3.4-5.0); BILIRUBIN,TOTAL 0.4 mg/dL (0.2-1); BLOOD UREA NITROGEN 13.5 mg/dL (7-18); CALCIUM 8.2 mg/dL (8.5-10.1); CREATININE 0.8 mg/dL (0.55-1.3); POTASSIUM 3.6 mmol/L (3.5-5.1); TOT PROT 6.7 g/dl (6.4-8.2)
[2019-07-16] MEDS ORDERED: ACETAMINOPHEN/CAFFEINE/BUTALBITAL 1 TAB PO ONE (13:52)
[2019-07-16] MEDS ORDERED: ACETAMINOPHEN/CAFFEINE/BUTALBITAL 1 TAB ONE (14:02)
[2019-07-16 15:30] VITALS: TEMP 97.8
[2019-07-16 17:51] VITALS: BP 102/57; PULSE 60
--- NOTE | 2019-07-17 11:41 | EKG ---
Test Reason : Blood Pressure : / mmHG Vent. Rate : 057 BPM Atrial Rate : 057 BPM P-R Int : 144 ms QRS Dur : 082 ms QT Int : 452 ms P-R-T Axes : 017 -17 017 degrees QTc Int : 439 ms SINUS BRADYCARDIA OTHERWISE NORMAL ECG WHEN COMPARED WITH ECG OF 11-JUL-2019 05:33, VENT. RATE HAS DECREASED BY 39 BPM Confirmed by ANCA BERG MD ([id number]) on 07/17/2019 11:41:25 AM Referred By: Confirmed By:ANCA BERG MD
== END 2019-07-16 18:05 | disposition home or self-care (01) ==
LOC: JER 11:34
PROC: 3E033NZ Introduction of Analgesics, Hypnotics, Sedatives into Peripheral Vein, Percutaneous Approach (ICD-10-PCS; principal; 2019-07-16)
PROC: 3E033GC Introduction of Other Therapeutic Substance into Peripheral Vein, Percutaneous Approach (ICD-10-PCS; 2019-07-16)
PROC: 3E033GC Introduction of Other Therapeutic Substance into Peripheral Vein, Percutaneous Approach (ICD-10-PCS; 2019-07-16)
PROC: 3E033GC Introduction of Other Therapeutic Substance into Peripheral Vein, Percutaneous Approach (ICD-10-PCS; 2019-07-16)
DX: R51 Headache (principal); J45.909 Unspecified asthma, uncomplicated; Z88.1 Allergy status to other antibiotic agents
CPT/HCPCS: 36415; 80053; 85025; 93005; 93010; 99284-25; J0131

== ENCOUNTER 2019-08-04 04:15 | Emergency (ER) | payer OTHER ==
[2019-08-04] MEDS ORDERED: methylPREDNISolone NA SUCC 125 MG/2 ML VIAL IVPUSH ONE (04:43)
--- NOTE | 2019-08-04 04:43 | PDOC ---
Attending Attestation - Resident Resident Name: Yakov Garcia - ED Attending Attestation I have performed the following: I have examined & evaluated the patient, The case was reviewed & discussed with the resident, I agree w/resident's findings & plan - HPI HPI: 08/04/19 06:59 see resident hpi - Physicial Exam PE: 08/04/19 06:59 agree with resident exam - Medical Decision Making 08/04/19 06:59 53-year-old female with asthma exacerbation Chest x-ray shows no focal consolidation Labs are unremarkable EKG shows no ST segment elevation Patient is resolved after Solu-Medrol and DuoNeb's in the emergency department She will be discharged with a Medrol Dosepak and MDI/nebulizer refill
[2019-08-04] MEDS ORDERED: ALBUTEROL SO4 2.5/IPRATROPIUM 0.5 INH SOL 3 ML VIAL.NEB. NEB ONE (05:00)
[2019-08-04] MEDS ORDERED: methylPREDNISolone NA SUCC 125 MG/2 ML VIAL ONE (05:01)
[2019-08-04 05:02] LABS: BASO % 1.1 % (0-2.0); EOS % 2.4 % (0-4.5); HEMATOCRIT 33.4 % (32.4-45.2); HEMOGLOBIN 11.6 GM/dL (10.7-15.3); LYMPH % 29.3 % (8-40); MCH 29.3 pg (25.7-33.7); MCHC 34.7 g/dl (32.0-36.0); MEAN CELL VOLUME 84.4 fl (80-96); MEAN PLT VOLUME 7.4 fl (7.5-11.1); MONO % 11.8 % (3.8-10.2); NEUT % 55.4 % (42.8-82.8); PLATELET COUNT 212 K/MM3 (134-434); RBC 3.96 M/mm3 (3.60-5.2); RDW 13.5 % (11.6-15.6); WHITE BLOOD COUNT 7.4 K/mm3 (4.0-10.0)
[2019-08-04] MEDS: ALBUTEROL SO4 2.5/IPRATROPIUM 0.5 INH SOL 3 ML VIAL.NEB. NEB SCH ×3 (05:09→05:13)
[2019-08-04 05:18] VITALS: BP 127/56; PULSE 92; TEMP 97.7; BMI 28.0
[2019-08-04 05:25] LABS: ALBUMIN 3.5 g/dl (3.4-5.0); BILIRUBIN,TOTAL 0.5 mg/dL (0.2-1); BLOOD UREA NITROGEN 16.1 mg/dL (7-18); CALCIUM 8.5 mg/dL (8.5-10.1); CREATININE 0.8 mg/dL (0.55-1.3); POTASSIUM 3.7 mmol/L (3.5-5.1); TOT PROT 7.1 g/dl (6.4-8.2)
--- NOTE | 2019-08-04 06:30 | PDOC ---
History of Present Illness - General Chief Complaint: Asthma Stated Complaint: ASTHMA,SORE THROAT & PAIN Time Seen by Provider: 08/04/19 04:42 History Source: Patient Exam Limitations: No Limitations - History of Present Illness Initial Comments: 08/04/19 06:25 53 yo F with a hx of asthma presents to the emergency department with SOB since last night. Per the patient, she states she has been using her albuterol which did not relieve her SOB. She states she has concurrent chest tightness. Denies trauma to the chest. Endorses loss of voice and nausea. Denies the following: fever, chills, vomiting, abdominal pain, dysuria, hematuria, diarrhea, hematochezia, and leg pain/swelling Allergies: ceftriaxone Social: Denies tobacco, alcohol, and substance abuse. Past History - Past Medical History Allergies/Adverse Reactions: Allergies Allergy/AdvReac Type Severity Reaction Status Date / Time ceftriaxone Allergy Mild Rash Verified 08/04/19 04:47 Home Medications: Ambulatory Orders Albuterol 0.083% Nebulizer Claudia [Ventolin 0.083% Nebulizer Soln -] 1 neb NEB Q6H PRN 07/12/19 Albuterol Sulfate [Proair Respiclick] 2 puff IH Q6H PRN 07/12/19 Acetaminophen/Caffeine/Butalb [Fioricet -] 1 tab PO Q6H PRN #28 tablet MDD 4 tabs 07/16/19 Acetaminophen/Caffeine/Butalb [Fioricet -] 1 tab PO TID PRN #12 tablet MDD 3 02/27 Acetaminophen/Caffeine/Butalb [Fioricet -] 1 tablet PO QID PRN #12 tablet MDD 4 07/16/19 Metoclopramide HCl [Reglan -] 10 mg PO BID PRN #14 tablet 07/16/19 Ondansetron [Zofran *Odt*] 4 mg SL TID PRN #21 od.tablet 07/16/19 Albuterol 0.083% Nebulizer Claudia [Ventolin 0.083% Nebulizer Soln -] 1 neb NEB Q6H #1 vial 08/04/19 Albuterol Sulfate Inhaler - [Ventolin HFA Inhaler -] 1 - 2 inh PO Q4H #1 inhaler 08/04/19 Methylprednisolone [Medrol Dose Dariel] 4 mg PO ASDIR #21 tablet 10/24/19 Asthma: Yes COPD: No - Surgical History GI Surgery: Yes (prolapsed bladder) - Psycho Social/Smoking Cessation Hx Smoking History: Never smoked Have you smoked in the past 12 months: No Hx Alcohol Use: Yes (Social) Drug/Substance Use Hx: No Review of Systems - Review of Systems Able to Perform ROS?: Yes Is the patient limited [place] proficient: No Constitutional: No: Chills, Diaphoresis, Fever, Weakness HEENTM: Yes: Other (laryngitis). No: Eye Pain, Ear Pain, Nose Pain, Throat Pain , Mouth Pain Respiratory: Yes: Cough, Shortness of Breath. No: Hemoptysis Cardiac (ROS): Yes: Chest Tightness. No: Chest Pain, Lightheadedness, Palpitations, Syncope ABD/GI: Yes: Nausea. No: Constipated, Diarrhea, Poor Fluid Intake, Rectal Bleeding, Vomiting, Tarry Stools : No: Burning, Dysuria, Incontinence, Pain Musculoskeletal: No: Back Pain, Joint Pain, Joint Stiffness Integumentary: No: Bruising, Flushing, Lesions Neurological: No: Headache, Numbness, Tingling, Tremors Psychiatric: No: Change in Appetite Endocrine: No: Unexplained Weight Loss Hematologic/Lymphatic: No: Anemia *Physical Exam - Vital Signs Last Vital Signs Temp Pulse Resp BP Pulse Ox 97.7 F 92 H 19 127/56 L 100 08/04/19 04:15 08/04/19 04:15 08/04/19 05:30 08/04/19 04:15 08/04/19 05:30 - Physical Exam General Appearance: Yes: Nourished, Appropriately Dressed. No: Apparent Distress HEENT: positive: EOMI, NINFA, Normal Voice, Symmetrical, Pharynx Normal, Hearing Grossly Normal. negative: Pale Conjunctivae, Scleral Icterus (R), Scleral Icterus (L), Muffled/Hoarse voice, Pharyngeal Erythema, Tonsillar Exudate, Tonsillar Erythema, Excessive drooling Neck: positive: Trachea midline, Supple. negative: Tender, Lymphadenopathy (R) , Lymphadenopathy (L), Tender lateral, Tender midline Respiratory/Chest: positive: Lungs Clear, Normal Breath Sounds. negative: Chest Tender, Respiratory Distress, Accessory Muscle Use, Crackles, Rales, Rhonchi Cardiovascular: positive: Regular Rhythm, Regular Rate, S1, S2. negative: Systolic Murmur Gastrointestinal/Abdominal: positive: Normal Bowel Sounds, Flat, Soft. negative : Tender Lymphatic: negative: Adenopathy Musculoskeletal: positive: Normal Inspection. negative: CVA Tenderness, Vertebral Tenderness Extremity: positive: Normal Capillary Refill, Normal Inspection, Normal Range of Motion. negative: Tender Integumentary: positive: Normal Color, Dry, Warm Neurologic: positive: souvenir and novelty maker II-XII NML intact, Fully Oriented, Alert, Normal Mood/ Affect, Normal Response, Motor Strength 02/13 ED Treatment Course - LABORATORY CBC & Chemistry Diagram: 08/04/19 04:55 08/04/19 04:55 - ADDITIONAL ORDERS Additional order review: Laboratory Results 08/04/19 08/04/19 04:55 04:55 Sodium 143 Potassium 3.7 Chloride 108 H Carbon Dioxide 28 Anion Gap 6 L BUN 16.1 Creatinine 0.8 Est GFR (CKD-EPI)AfAm 98.24 Est GFR (CKD-EPI)NonAf 84.76 Random Glucose 102 Calcium 8.5 Total Bilirubin 0.5 AST 18 ALT 27 Alkaline Phosphatase 85 Creatine Kinase 46 Troponin I < 0.02 Total Protein 7.1 Albumin 3.5 08/04/19 04:55 RBC 3.96 MCV 84.4 MCHC 34.7 RDW 13.5 MPV 7.4 L Neutrophils % 55.4 Lymphocytes % 29.3 D Monocytes % 11.8 H Eosinophils % 2.4 D Basophils % 1.1 D - RADIOLOGY Radiology Studies Ordered: Category Date Time Status CHEST X-RAY PORTABLE* [RAD] Stat Radiology 08/04/19 04:49 Taken - Medications Given in the ED: ED Medications Discontinued Medications Generic Name Dose Route Start Last Admin Trade Name Freq PRN Reason Stop Dose Admin Albuterol/Ipratropium 1 amp 08/04/19 04:45 08/04/19 05:13 Duoneb - NEB 08/04/19 05:31 1 amp Q15M JOSE Administration Methylprednisolone Sodium Succinate 125 mg 08/04/19 04:43 08/04/19 05:08 Solu-Medrol - IVPUSH 08/04/19 04:44 125 mg ONCE ONE Administration Medical Decision Making - Medical Decision Making 08/04/19 17:51 53 yo F with a hx of asthma presents to the emergency department with SOB since last night. Initial vitals: Initial Vital Signs Temp Pulse Resp BP Pulse Ox 97.7 F 92 H 19 127/56 L 100 08/04/19 04:15 08/04/19 04:15 08/04/19 04:15 08/04/19 04:15 08/04/19 04:15 Work up: patient presents with SOB. will obtain cbc, cmp, trops, ekg, cxr, duonebs, solumedrol. Laboratory Tests 08/04/19 08/04/19 08/04/19 04:55 04:55 04:55 WBC 7.4 RBC 3.96 Hgb 11.6 Hct 33.4 MCV 84.4 MCH 29.3 MCHC 34.7 RDW 13.5 Plt Count 212 D MPV 7.4 L Absolute Neuts (auto) 4.1 Neutrophils % 55.4 Lymphocytes % 29.3 D Monocytes % 11.8 H Eosinophils % 2.4 D Basophils % 1.1 D Nucleated RBC % 0 Sodium 143 Potassium 3.7 Chloride 108 H Carbon Dioxide 28 Anion Gap 6 L BUN 16.1 Creatinine 0.8 Est GFR (CKD-EPI)AfAm 98.24 Est GFR (CKD-EPI)NonAf 84.76 Random Glucose 102 Calcium 8.5 Total Bilirubin 0.5 AST 18 ALT 27 Alkaline Phosphatase 85 Creatine Kinase 46 Troponin I < 0.02 Total Protein 7.1 Albumin 3.5 CXR shows no acute process. EKG shows NSR without ST elevations or depressions Patient had massive improvement in symptoms with treatment. trops negative. will discharge with pMD follow up. Dispo: Discharge 08/04/19 17:54 Discharge - Discharge Information Problems reviewed: Yes Clinical Impression/Diagnosis: Shortness of breath Condition: Good Disposition: HOME - Admission No - Additional Discharge Information Prescriptions: Albuterol 0.083% Nebulizer Claudia [Ventolin 0.083% Nebulizer Soln -] 1 neb NEB Q6H #1 vial Albuterol Sulfate Inhaler - [Ventolin HFA Inhaler -] 1 - 2 inh PO Q4H #1 inhaler Methylprednisolone [Medrol Dose Dariel] 4 mg PO ASDIR #21 tablet - Follow up/Referral Referrals: [facility] [place] [facility] at [place] [Provider Group] - Patient Discharge Instructions Patient Printed Discharge Instructions: Asthma -- Adult Additional Instructions: You were seen in the emergency department for the evaluation of your shortness of breath. you have been prescribed medications please take as directed. please see your primary medical doctor within 1 week after discharge or the one referred to you. please return to the emergency department if you have worsening symptoms. thank you - Post Discharge Activity Work/Back to School Note: Back to Work
--- NOTE | 2019-08-04 13:34 | EKG ---
Test Reason : Blood Pressure : / mmHG Vent. Rate : 093 BPM Atrial Rate : 093 BPM P-R Int : 144 ms QRS Dur : 078 ms QT Int : 370 ms P-R-T Axes : 045 -21 018 degrees QTc Int : 460 ms NORMAL SINUS RHYTHM CANNOT RULE OUT ANTERIOR INFARCT , AGE UNDETERMINED ABNORMAL ECG WHEN COMPARED WITH ECG OF 16-JUL-2019 11:59, VENT. RATE HAS INCREASED BY 36 BPM NON-SPECIFIC CHANGE IN ST SEGMENT IN ANTERIOR LEADS NONSPECIFIC T WAVE ABNORMALITY NOW EVIDENT IN ANTERIOR LEADS Confirmed by CANDIDA BRUNSON MD ([id number]) on 08/04/2019 1:33:59 PM Referred By: Confirmed By:CANDIDA BRUNSON MD
== END 2019-08-04 06:59 | disposition home or self-care (01) ==
LOC: JER 04:15
PROC: 3E0F7GC Introduction of Other Therapeutic Substance into Respiratory Tract, Via Natural or Artificial Opening (ICD-10-PCS; principal; 2019-08-04)
PROC: 3E0333Z Introduction of Anti-inflammatory into Peripheral Vein, Percutaneous Approach (ICD-10-PCS; 2019-08-04)
DX: J45.901 Unspecified asthma with (acute) exacerbation (principal); Z88.1 Allergy status to other antibiotic agents
CPT/HCPCS: 36415; 71045-TC-FY; 80053; 82550; 84484; 85025; 93005; 93010; 99282-25